=== PATIENT | female | born 1950 | race Caucasian/White ===

== ENCOUNTER → 2017-06-05 | Outpatient (CLI) | payer MEDICARE, MEDICAID ==
--- NOTE | 2017-06-05 14:45 | RADIOLOGY REPORT (SQ) ---
EXAM DESCRIPTION: U/S RETROPERITON (RENAL/AORTA) COMPLETED DATE/TIME: 06/05/2017 1:17 pm REASON FOR STUDY: N18.3 CHRONIC KIDNEY DISEASE, STAGE 3 (MODERATE) N18.3 CHRONIC KIDNEY DISEASE, ST AGE 4 (MODERATE) COMPARISON: None. TECHNIQUE: Dynamic and static grayscale images acquired of the kidneys and bladder and recorded on P ACS. Additional selected color Doppler and spectral images recorded. LIMITATIONS: None. FINDINGS: RIGHT KIDNEY: Small, 8.8 cm. Cortical thickness fairly well maintained. Normal echogenic ity. No solid or suspicious masses. No hydronephrosis. No calcifications. LEFT KIDNEY: Normal size, 9.7 cm. Cortical thickness well-maintained. Normal echogenicity. No solid or suspicious masses. No hydronephrosis. No calcifications. BLADDER: Morphologically normal. Left urinary jet is visualized. OTHER FINDINGS: No other significant finding. IMPRESSION: The right kidney is smaller than the left but both kidneys show fairly good cortical thi ckness. Urinary bladder is normal. TECHNICAL DOCUMENTATION: JOB ID: [id number] [employer]- All Rights Reserved
== END ==
LOC: RAD 12:36
PROVIDERS: ATTEND Internal Medicine Nephrology
DX: N18.3 Chronic kidney disease, stage 3 (moderate) (principal)
CPT/HCPCS: 76770

== ENCOUNTER → 2017-06-17 | Outpatient (CLI) | payer MEDICARE, MEDICAID ==
[2017-06-17 11:01] LABS: APPEARANCE,URINE SLIGHTLY-CLOUDY; BILIRUBIN,URINE NEGATIVE (NEGATIVE); GLUCOSE, URINE NEGATIVE (NEGATIVE); KETONES,URINE NEGATIVE (NEGATIVE); LEUKOCYTE ESTERASE,URINE TRACE (NEGATIVE); NITRITE,URINE POSITIVE (NEGATIVE); PROTEIN,URINE NEGATIVE (NEGATIVE); URINE SPECIFIC GRAVITY 1.006; UROBILINOGEN,URINE NEGATIVE mg/dL (<2.0)
[2017-06-17 11:02] LABS: HEMATOCRIT 43.3 % (36.0-47.0); HEMOGLOBIN 14.9 g/dL (12.0-15.5); HGB HCT DIFFERENCE 1.4; MEAN CORPUSCULAR HEMOGLOBIN 31.9 pg (27.0-33.4); MEAN CORPUSCULAR HGB CONC 34.3 g/dL (32.0-36.0); MEAN CORPUSCULAR VOLUME 93 fl (80-97); RED BLOOD COUNT 4.65 10^6/uL (3.72-5.28); RED CELL DISTRIBUTION WIDTH 13.5 % (11.5-14.0); WHITE BLOOD COUNT 9.3 10^3/uL (4.0-10.5)
[2017-06-17 11:19] LABS: ANION GAP 14 (5-19); BLOOD UREA NITROGEN 12 mg/dL (7-20); CALCIUM 10.1 mg/dL (8.4-10.2); CARBON DIOXIDE 26 mmol/L (22-30); CHLORIDE 102 mmol/L (98-107); CREATININE RESULT 1.02 mg/dL (0.52-1.25); GLUCOSE 147 mg/dL (75-110); POTASSIUM 4.7 mmol/L (3.6-5.0); SODIUM 141.6 mmol/L (137-145)
== END ==
LOC: OD 09:06
PROVIDERS: ATTEND Internal Medicine Nephrology
DX: N18.3 Chronic kidney disease, stage 3 (moderate) (principal)
CPT/HCPCS: 36415; 80048; 81001; 85027

== ENCOUNTER → 2017-10-02 | Outpatient (CLI) | payer MEDICARE, MEDICAID ==
[2017-10-02 14:50] LABS: HEMATOCRIT 43.3 % (36.0-47.0); HEMOGLOBIN 14.7 g/dL (12.0-15.5); MEAN CORPUSCULAR HEMOGLOBIN 31.3 pg (27.0-33.4); MEAN CORPUSCULAR VOLUME 92 fl (80-97); PLATELET COUNT 321 10^3/uL (150-450); RED BLOOD COUNT 4.69 10^6/uL (3.72-5.28); RED CELL DISTRIBUTION WIDTH 14.8 % (11.5-14.0); WHITE BLOOD COUNT 8.6 10^3/uL (4.0-10.5)
[2017-10-02 15:10] LABS: ANION GAP 8 (5-19); BLOOD UREA NITROGEN 15 mg/dL (7-20); CALCIUM 10.5 mg/dL (8.4-10.2); CARBON DIOXIDE 32 mmol/L (22-30); CHLORIDE 97 mmol/L (98-107); GLUCOSE 111 mg/dL (75-110); POTASSIUM 5.4 mmol/L (3.6-5.0)
[2017-10-02 15:17] LABS: APPEARANCE,URINE CLEAR; BILIRUBIN,URINE NEGATIVE (NEGATIVE); COLOR,URINE YELLOW; GLUCOSE, URINE NEGATIVE (NEGATIVE); KETONES,URINE NEGATIVE (NEGATIVE); LEUKOCYTE ESTERASE,URINE SMALL (NEGATIVE); NITRITE,URINE NEGATIVE (NEGATIVE); PROTEIN,URINE NEGATIVE (NEGATIVE); URINE SPECIFIC GRAVITY 1.002; UROBILINOGEN,URINE NEGATIVE mg/dL (<2.0)
== END ==
LOC: OD 13:50
PROVIDERS: ATTEND Internal Medicine Nephrology
DX: N18.3 Chronic kidney disease, stage 3 (moderate) (principal)
CPT/HCPCS: 36415; 80048; 81001; 85027

== ENCOUNTER → 2017-12-03 | Outpatient (CLI) | payer MEDICARE, MEDICAID ==
--- NOTE | 2017-12-08 07:49 | RADIOLOGY REPORT (SQ) ---
EXAM DESCRIPTION: MRI BREAST BILAT W AND/OR WO COMPLETED DATE/TIME: 12/03/2017 8:50 am REASON FOR STUDY: MALIGNANT NEOPLASM OF UPPER-INNER QUAD OF RIGHT BREAST (C50.211) C50.211 MALIG NE OPLM OF UPPER-INNER QUADRANT OF RIGHT FEMALE COMPARISON: Outside mammograms 05/08/2009, 10/23/2015, 10/14/2017 Right breast ultrasound 10/14/2017 PATHOLOGIC CORRELATION: Biopsy-proven malignancy, medial right breast. Atypical hyperplasia, right breast retroareolar region. CONTRAST TYPE AND DOSE: 20 mL Prohance. RENAL FUNCTION: GFR > 60. TECHNIQUE: MR imaging performed with a dedicated breast coil. Pre contrast T1 and T2 weighted images . Pre contrast and post contrast enhanced T1 weighted images with fat saturation. Subtraction images, 3D thick and thin MIPS, and kinetic analysis performed on an independent workstat ion. ([employer] workstation) Magnet strength: 1.5 T LIMITATIONS: None. FINDINGS: BREAST DENSITY: b. There are scattered areas of fibroglandular density. BACKGROUND PARENCHYMAL ENHANCEMENT:Minimal. RIGHT BREAST: There is a biopsy clip in the medial right breast about 2.5 cm from the sternum. This biopsy clip causes artifact, obscuring the nodule which was biopsied and shown to represent focal jeanna anton hyperplasia. Nodule measures about 1 cm in size. The border between the nodule and pectoralis muscle is obscured by the metallic artifact from the clip. A second biopsy clip is present in the right retroareolar region, adjacent to a 10 mm retroareolar no dule with avid gadolinium enhancement and nipple retraction worrisome for malignancy. This correlate s with right breast 2 o'clock core needle biopsy invasive ductal carcinoma on path report 11/17/2017. Laterally in the right breast, about the level of the nipple, 6 cm from the nipple a 12 mm nodule is present with avid gadolinium enhancement. This has spiculated margins and is highly suspicious for m alignancy. Second-look ultrasound with ultrasound-guided core biopsy of this lesion in the lateral r ight breast is recommended. No clumped, regional/segmental ductal enhancement. CHEST WALL: Normal tissue planes. No abnormal internal mammary nodes. AXILLA: Normal axillary and retro-pectoral nodes. LEFT BREAST:No enhancing or suspicious masses. No clumped, regional/segmental ductal enhancement. CHEST WALL: Normal tissue planes. No abnormal internal mammary nodes. AXILLA: Normal axillary and retro-pectoral nodes. OTHER:No identified liver, bone, or lung lesions. No other significant incidental findings. IMPRESSION: Right breast: Laterally in the right breast 6 cm from the nipple, a 12 mm nodule is present with avid gadolinium en hancement and spiculated margins highly suspicious for malignancy. This lesion has not been biopsied . Second-look ultrasound with ultrasound-guided biopsy of this lesion is recommended. BI-RADS 0, ad ditional right breast ultrasound with ultrasound-guided core biopsy is recommended of this lesion. In the right retroareolar region, a malignant appearing nodule is present, biopsy proven to represent invasive ductal carcinoma on path report 11/17/2017. Known malignancy, appropriate action should be taken. No MR evidence of malignancy left breast. BIRAD: RIGHT BREAST: BI-RADS 0, additional right breast ultrasound with ultrasound-guided core biops y is recommended, in the right breast lateral nodule LEFT BREAST: 1 Negative. RECOMMENDATION: RECOMMENDED FOLLOW-UP: Right breast second-look ultrasound laterally, with ultrasoun d-guided core biopsy TECHNICAL DOCUMENTATION: JOB ID: [id number] [employer]- All Rights Reserved Reading location - IP/workstation name: [facility]
== END ==
LOC: RAD 07:25
PROVIDERS: ATTEND Internal Medicine
DX: C50.211 Malignant neoplasm of upper-inner quadrant of right female breast (principal)
CPT/HCPCS: A9576; C8906; 77059

== ENCOUNTER → 2017-12-09 | Outpatient (CLI) | payer MEDICARE, MEDICAID ==
[~2017-12-09] MED LIST: LIDOCAINE 2% INJ (20 MG/ML) 20 ML MDV ONE
--- NOTE | 2017-12-09 17:01 | RADIOLOGY REPORT (SQ) ---
EXAM DESCRIPTION: NM MUGA REST COMPLETED DATE/TIME: 12/09/2017 11:47 am REASON FOR STUDY: BREAST CANCER, CHEMO PLANNED Z08 ENCNTR FOR FOLLOW-UP EXAM AFTER TRTMT FOR MALIGN ANT NEOP C50.211 MALIG NEOPLM OF UPPER-INNER QUADRANT OF RIGHT FEMALE COMPARISON: None. RADIONUCLIDE AND DOSE: 24.8 mCi technetium 99m labeled red blood cells The route of agent administration: Intravenous TECHNIQUE: Following administration of the radionuclide, gated images of the heart are obtained in t hree projections. Left ventricular functional analysis performed. LIMITATIONS: None. FINDINGS: LEFT VENTRICULAR FUNCTION: EJECTION FRACTION: 89%. END-DIASTOLIC VOLUME: 58 mL. END-SYSTOLIC VOLUME: 10 mL. WALL MOTION: No regional wall motion abnormalities. OTHER: No other significant finding. IMPRESSION: NORMAL CARDIAC MUGA STUDY. NORMAL LEFT VENTRICULAR FUNCTION WITH VALUES ABOVE. TECHNICAL DOCUMENTATION: JOB ID: [id number] [employer]- All Rights Reserved Reading location - IP/workstation name: [email or web address]
== END ==
LOC: RAD 10:00
PROVIDERS: ATTEND Internal Medicine
DX: Z08 Encounter for follow-up examination after completed treatment for malignant neoplasm (principal); C50.211 Malignant neoplasm of upper-inner quadrant of right female breast
CPT/HCPCS: 78472; A9538; Q9969; J3490

== ENCOUNTER → 2017-12-10 | Day surgery (SDC) | payer MEDICARE, MEDICAID ==
--- NOTE | 2017-12-18 07:51 | WOMENS IMAGING REPORT ---
EXAM DESCRIPTION: U/S BREAST BX; U/S BREAST BX EACH ADDT'L; RIGHT DIG DX MAMMO NO CHG COMPLETED DATE/TIME: 12/10/2017 1:47 pm; 12/10/2017 1:23 pm REASON FOR STUDY: RT BREAST NODULE; C50.211; C50.211 S/P US BX RIGHT FOR CLIP PLACEMENT C50.211 MAL IG NEOPLM OF UPPER-INNER QUADRANT OF RIGHT FEMALE COMPARISON: MRI breast 12/03/2017 Mammograms and ultrasound 10/14/2017 TECHNIQUE: The procedure was discussed with the patient and the patient agreed to proceed. The patient was scanned and the area of interest in the 10 o'clock position 10 cm from the nipple of the right breast was localized. This correlates with the area of concern on prior imaging studies. T his area was targeted for ultrasound-guided core biopsy. After sterile skin prep and 3 mL local lidocaine 1% for skin and deep tissue anesthesia, a 14 gauge c oaxial core biopsy needle was used to obtain several cores of tissue from the lesion. Under ultrasou nd guidance, a ribbon clip was placed in the areas sampled. There were no immediate post-procedure c omplications. MAMMOGRAM: Post-procedure two view mammogram was acquired in the digital mammogram suite. The clip wa s in the expected location. No significant hematoma. Pathology yields a diagnosis of invasive ductal carcinoma Pathology is concordant. LIMITATIONS: None. FINDINGS: Ultrasound guided breast biopsy as described above. POST PROCEDURE MAMMOGRAMS FOR MARKER PLACEMENT: Yes IMPRESSION: ULTRASOUND-GUIDED CORE BIOPSY OF THE RIGHT BREAST MASS 10 O'CLOCK POSITION YIELDS A DIAG NOSIS OF INVASIVE DUCTAL CARCINOMA COMMENT: BI-RADS 6 Known biopsy-proven malignancy. Appropriate action should be taken. COMMUNICATION: This case was discussed with Dr. Crawley and Dr. Osorio Patient medication list reviewed: Yes- Quality ID# [id number]:Eligible professional attests to documenting i n the medical record they obtained, updated, or reviewed the patient's current medications. TECHNICAL DOCUMENTATION: JOB ID: [id number] [employer]- All Rights Reserved Reading location - IP/workstation name: [email or web address]
== END ==
LOC: WI 10:27
PROVIDERS: ATTEND Internal Medicine
DX: C50.211 Malignant neoplasm of upper-inner quadrant of right female breast (principal)
CPT/HCPCS: 19083; 19084; 88305; 88313; 88341; 88342

== ENCOUNTER 2017-12-16 05:33 | Day surgery (SDC) | payer MEDICARE, MEDICAID ==
[2017-12-15 10:06] LABS: HEMATOCRIT 43.1 % (36.0-47.0); HEMOGLOBIN 14.9 g/dL (12.0-15.5); MEAN CORPUSCULAR HEMOGLOBIN 31.5 pg (27.0-33.4); MEAN CORPUSCULAR HGB CONC 34.5 g/dL (32.0-36.0); MEAN CORPUSCULAR VOLUME 91 fl (80-97); PLATELET COUNT 379 10^3/uL (150-450); RED BLOOD COUNT 4.72 10^6/uL (3.72-5.28); RED CELL DISTRIBUTION WIDTH 14.4 % (11.5-14.0); WHITE BLOOD COUNT 9.1 10^3/uL (4.0-10.5)
--- NOTE | 2017-12-15 12:02 | RADIOLOGY REPORT (SQ) ---
EXAM DESCRIPTION: CHEST SINGLE VIEW COMPLETED DATE/TIME: 12/15/2017 10:43 am REASON FOR STUDY: PRE-OP COMPARISON: Chest films 08/17/2010 EXAM PARAMETERS: NUMBER OF VIEWS: One view. TECHNIQUE: Single frontal radiographic view of the chest acquired. RADIATION DOSE: NA LIMITATIONS: None. FINDINGS: LUNGS AND PLEURA: No acute infiltrates. No pleural effusion or pneumothorax. Upper lobes are hyperlucent from obstructive disease. MEDIASTINUM AND HILAR STRUCTURES: No masses. Contour normal. HEART AND VASCULAR STRUCTURES: Heart normal in size. Normal vasculature. BONES: No acute findings. HARDWARE: None in the chest. OTHER: No other significant finding. IMPRESSION: Obstructive lung disease. No acute findings TECHNICAL DOCUMENTATION: JOB ID: [id number] [employer]- All Rights Reserved Reading location - IP/workstation name: [email or web address]
--- NOTE | 2017-12-15 22:42 | EKG REPORT ---
SEVERITY:- NORMAL ECG - SINUS RHYTHM : Confirmed by: Citlaly Panchal 15-Dec-2017 22:41:04
[~2017-12-16 05:33] MED LIST changes: +ACETAMINOPHEN 325 MG TABLET PO PRN; +CEFAZOLIN 1 GM/D5W RTU 1 GM/50 ML RTUPB IV PRN; +LACTATED RINGERS 1000 ML IV PRN; -LIDOCAINE 2% INJ (20 MG/ML) 20 ML MDV ONE
[2017-12-16] MEDS ORDERED: LIDOCAINE 1%/EPINEPHRINE INJ 20 ML VIAL ONE (06:35)
[2017-12-16] MEDS ORDERED: MIDAZOLAM 2 MG/2 ML INJ ONE (06:42)
[2017-12-16] MEDS ORDERED: FENTANYL CITRATE INJ/PF 100 MCG/2 ML AMPUL ONE (06:42)
[2017-12-16] MEDS ORDERED: PROPOFOL INJ 200 MG/20 ML VIAL IV ONE (06:42)
[2017-12-16] MEDS ORDERED: PROMETHAZINE HCL INJ 25 MG/1 ML VIAL IV PRN ×2 (07:43)
[2017-12-16] MEDS ORDERED: DIPHENHYDRAMINE HCL 50 MG/ML VIAL IV PRN (07:43)
[2017-12-16] MEDS ORDERED: FENTANYL CITRATE INJ/PF 100 MCG/2 ML AMPUL IV PRN ×3 (07:43)
[2017-12-16] MEDS ORDERED: MEPERIDINE HCL/PF INJ 25 MG/1 ML DISP.SYRIN IV PRN (07:43)
--- NOTE | 2017-12-16 08:25 | Discharge Summary ---
Discharge Summary (SDC) - Discharge Final Diagnosis: Right breast cancer Date of Surgery: 12/16/17 Discharge Date: 12/16/17 Condition: Stable Treatment or Instructions: WOUND CARE: Do not get area wet for 48 hours. In 48 hours, you may shower, leave steri strips intact. Warm water/soap may wash over area, pat dry, cover if needed. PAIN MANAGEMENT: You may take Toradol 10 mg, one pill by mouth every six hours as needed for pain. FOLLOW UP: Follow up at [facility] in 7-10 days. Call clinic sooner with questions/concerns or if area becomes red, swollen, drainage, or difficulty breathing. Prescriptions: Ketorolac Tromethamine [Toradol 10 mg Tablet] 10 mg PO Q6HP PRN #20 tablet PRN Reason: Referrals: JW DEWITT MD [Primary Care Provider] - Discharge Diet: As Tolerated Discharge Activity: Activity As Tolerated, Walk Frequently Report the Following to Your Physician Immediately: Shortness of Breath, Fever over 101 Degrees, Unusual Bleeding, Redness, Swelling, Warmth, Drainage-Foul Smelling
[2017-12-16] MEDS ORDERED: OXYCODONE-ACETAMINOPHEN 5-325 MG TABLET PO PRN (08:30)
--- NOTE | 2017-12-16 08:38 | Operative Report ---
Operative Report DATE OF SURGERY: 12/16/17 PREOPERATIVE DIAGNOSIS: Multicentric right breast carcinoma POSTOPERATIVE DIAGNOSIS: Same OPERATION: 1. Focused ultrasound of the left neck. 2. Ultrasound directed insertion of single-lumen Qkdsds-f-Ndzf catheter into subclavian position. 3. Intraoperative fluoroscopic interpretation SURGEON: CITLALI KINNEY 1ST ROUTE MANAGER: DEVON VAUGHN ANESTHESIA: LMAC TISSUE REMOVED OR ALTERED: None COMPLICATIONS: None ESTIMATED BLOOD LOSS: Scant INTRAOPERATIVE FINDINGS: See below PROCEDURE: The patient was taken to the operating room where LMAC anesthesia was induced. Right head and neck were rotated to the right side. Left neck and chest wall were prepped and draped sterile fashion. Surgical plan surgical timeout conducted. Using ultrasonography real-time as a guide, the left neck was anesthetized 1% plain lidocaine. Micro needle and wire were threaded into the left internal jugular vein using the variable frequency transducer. A suitable place for placement of the port pocket was chosen. Skin was anesthetized 1% plain lidocaine. A 3 cm incision was made in the subclavicular position, subcutaneous pocket developed large enough to accommodate a single- chamber port. The catheter that was then trimmed the appropriate length tunneled between the 2 incisions with the metallic tunneler and attached to the port with the plastic retaining ring. The port was tucked into the pocket. The micro wire was switched over to a conventional 0.030 wire using the micro introducer sheath. We now threaded a 9 Grenadian dilator and sheath over the conventional guidewire all under fluoroscopic guidance. The dilator wire removed, and the single lumen catheter threaded into the left internal jugular vein. Strip away sheath was removed leaving the catheter position. There was no kinking of the catheter. The tip of the catheter was in the innominate vein- superior vena cava junction. There was excellent aspiration and flush through the single port using a Rueda needle. There was no ectopy. Wounds closed with 3-0 Vicryl benzoin Steri- Strips. Patient tolerated procedure well, taken recovery in stable condition.
[2017-12-16 11:33] VITALS: BP 128/75
--- NOTE | 2017-12-16 17:02 | RADIOLOGY REPORT (SQ) ---
EXAM DESCRIPTION: FLUORO/CV PLACEMENT COMPLETED DATE/TIME: 12/16/2017 10:07 am REASON FOR STUDY: PORTACATH PLCMT LEFT SIDE ASST WITH FLUORO IN OR C50.911 MALIGNANT NEOPLASM OF UN SP SITE OF RIGHT FEMALE FLACO Z79.01 CORRECTION (CURRENT) USE OF ANTICOAGULANTS COMPARISON: AP chest 12/15/2017 FLUOROSCOPY TIME: 0.3 minutes 3 digital radiographic images saved to PACS. TECHNIQUE: Intra-operative images acquired during surgical procedure to evaluate progress. NUMBER OF IMAGES: 3 digital radiographic images LIMITATIONS: None. FINDINGS: Intra procedural imaging and fluoro during placement of a left-sided permanent central hannah e. The tip is in the left brachiocephalic vein/upper superior vena cava. Please see the operative r eport for further details IMPRESSION: Intra procedural imaging and fluoro COMMENT: Quality ID [id number]: Final reports for procedures using fluoroscopy that document radiation exp osure indices, or exposure time and number of fluorographic images (if radiation exposure indices are not available) Please consult full operative report of the attending physician for description of the procedure. TECHNICAL DOCUMENTATION: JOB ID: [id number] [employer]- All Rights Reserved Reading location - IP/workstation name: [email or web address]
== END 2017-12-16 10:00 | disposition home or self-care (01) ==
LOC: OROUT 05:33
PROVIDERS: ATTEND Surgery
DX: C50.911 Malignant neoplasm of unspecified site of right female breast (principal); N28.9 Disorder of kidney and ureter, unspecified; G47.00 Insomnia, unspecified; F17.200 Nicotine dependence, unspecified, uncomplicated; N63.10 Unspecified lump in the right breast, unspecified quadrant; F32.9 Major depressive disorder, single episode, unspecified; F17.210 Nicotine dependence, cigarettes, uncomplicated; Z79.899 Other long term (current) drug therapy; Z01.818 Encounter for other preprocedural examination
CPT/HCPCS: 36561; 93005; 36415; 85027; 71045; 77001; 93010; C1752; C1788; J2250; J0690; J3010; J3490; J2704; J1642; 532

== ENCOUNTER 2017-12-25 07:53 | Outpatient (CLI) | payer MEDICARE, MEDICAID ==
[~2017-12-25 07:53] MED LIST changes: -ACETAMINOPHEN 325 MG TABLET PO PRN; +CARBOPLATIN IV PRN; -CEFAZOLIN 1 GM/D5W RTU 1 GM/50 ML RTUPB IV PRN; +DEXAMETHASONE SOD PHOSPHATE 20 MG in NORMAL SALINE 50 ML IV PRN; +DIPHENHYDRAMINE HCL 50 MG in NORMAL SALINE 50 ML INJ PRN; +DOCETAXEL IV PRN; +FAMOTIDINE/PF 20 MG in NORMAL SALINE 50 ML IV PRN; +FOSAPREPITANT DIMEGLUMINE 150 MG in NORMAL SALINE 150 ML IV PRN; -LACTATED RINGERS 1000 ML IV PRN; +NORMAL SALINE 250 ML IV PRN; +NORMAL SALINE IV PRN; +PALONOSETRON 0.25 MG/5 ML SDV IV PRN; +PERTUZUMAB 840 MG in NORMAL SALINE 250 ML IV PRN; +TRASTUZUMAB IV PRN
[2017-12-25 08:31] VITALS: BP 134/60
== END 2017-12-25 15:23 | disposition home or self-care (01) ==
LOC: II 07:53 → 5TH 08:10 → II 15:23
PROVIDERS: ATTEND Internal Medicine
PROC: 3E04305 Introduction of Other Antineoplastic into Central Vein, Percutaneous Approach (ICD-10-PCS; principal; 2017-12-25)
PROC: 3E0430M Introduction of Antineoplastic, Monoclonal Antibody, into Central Vein, Percutaneous Approach (ICD-10-PCS; 2017-12-25)
PROC: 3E0433Z Introduction of Anti-inflammatory into Central Vein, Percutaneous Approach (ICD-10-PCS; 2017-12-25)
PROC: 3E043GC Introduction of Other Therapeutic Substance into Central Vein, Percutaneous Approach (ICD-10-PCS; 2017-12-25)
DX: Z51.11 Encounter for antineoplastic chemotherapy (principal); C50.211 Malignant neoplasm of upper-inner quadrant of right female breast
CPT/HCPCS: 96413; 96415; 96367; 96374; 96375; 96360; 96417; J1200; J9045; J7050; S0028; J1100; J1453; J9306; J2469; J9355; J9171

== ENCOUNTER 2018-01-15 10:16 | Outpatient (CLI) | payer MEDICARE, MEDICAID ==
[~2018-01-15 10:16] MED LIST changes: -DIPHENHYDRAMINE HCL 50 MG in NORMAL SALINE 50 ML INJ PRN; +DIPHENHYDRAMINE HCL 50 MG in NORMAL SALINE 50 ML IV PRN; -NORMAL SALINE 250 ML IV PRN; -PERTUZUMAB 840 MG in NORMAL SALINE 250 ML IV PRN; +PERTUZUMAB IV PRN
[2018-01-15] MEDS ORDERED: ACETAMINOPHEN 325 MG TABLET PO PRN (11:05)
[2018-01-15] MEDS: NORMAL SALINE 250 ML IV PRN ×2 (11:09→11:44)
[2018-01-15 11:34] VITALS: BP 130/64
== END 2018-01-15 15:39 | disposition home or self-care (01) ==
LOC: II 10:16 → 5TH 10:21 → II 15:39
PROVIDERS: ATTEND Internal Medicine
PROC: 3E0430M Introduction of Antineoplastic, Monoclonal Antibody, into Central Vein, Percutaneous Approach (ICD-10-PCS; principal; 2018-01-15)
PROC: 3E04305 Introduction of Other Antineoplastic into Central Vein, Percutaneous Approach (ICD-10-PCS; 2018-01-15)
PROC: 3E0433Z Introduction of Anti-inflammatory into Central Vein, Percutaneous Approach (ICD-10-PCS; 2018-01-15)
PROC: 3E043GC Introduction of Other Therapeutic Substance into Central Vein, Percutaneous Approach (ICD-10-PCS; 2018-01-15)
DX: Z51.11 Encounter for antineoplastic chemotherapy (principal); C50.211 Malignant neoplasm of upper-inner quadrant of right female breast
CPT/HCPCS: 96413; 96367; 96375; 96417; J1200; J9045; J7050; S0028; J1100; J1453; J9306; J2469; J9355; J9171; 96360; 96374; 96415

== ENCOUNTER 2018-02-05 10:25 | Outpatient (CLI) | payer MEDICARE, MEDICAID ==
[~2018-02-05 10:25] MED LIST changes: +NORMAL SALINE 250 ML IV PRN; +PERTUZUMAB 420 MG in NORMAL SALINE 250 ML IV PRN; -PERTUZUMAB IV PRN
[2018-02-05 10:48] VITALS: BP 124/58
== END 2018-02-05 16:48 | disposition home or self-care (01) ==
LOC: II 10:25 → 5TH 10:31 → II 16:48
PROVIDERS: ATTEND Internal Medicine
PROC: 3E0430M Introduction of Antineoplastic, Monoclonal Antibody, into Central Vein, Percutaneous Approach (ICD-10-PCS; principal; 2018-02-05)
PROC: 3E04305 Introduction of Other Antineoplastic into Central Vein, Percutaneous Approach (ICD-10-PCS; 2018-02-05)
PROC: 3E0433Z Introduction of Anti-inflammatory into Central Vein, Percutaneous Approach (ICD-10-PCS; 2018-02-05)
PROC: 3E043GC Introduction of Other Therapeutic Substance into Central Vein, Percutaneous Approach (ICD-10-PCS; 2018-02-05)
DX: Z51.11 Encounter for antineoplastic chemotherapy (principal); C50.211 Malignant neoplasm of upper-inner quadrant of right female breast
CPT/HCPCS: 96413; 96367; 96375; 96417; J1200; J9045; J7050; S0028; J1100; J1453; J9306; J2469; J9355; J9171; 96415

== ENCOUNTER 2018-02-26 08:30 | Outpatient (CLI) | payer MEDICARE, MEDICAID ==
[~2018-02-26 08:30] MED LIST changes: +DIPHENHYDRAMINE HCL 50 MG in NORMAL SALINE 50 ML INJ PRN; -DIPHENHYDRAMINE HCL 50 MG in NORMAL SALINE 50 ML IV PRN
[2018-02-26 08:51] VITALS: BP 115/59
== END 2018-02-26 14:46 | disposition home or self-care (01) ==
LOC: II 08:30 → 5TH 08:35 → II 14:46
PROVIDERS: ATTEND Internal Medicine
DX: Z51.11 Encounter for antineoplastic chemotherapy (principal); C50.211 Malignant neoplasm of upper-inner quadrant of right female breast
CPT/HCPCS: 96413; 96415; 96367; 96375; J1200; J9045; J7050; S0028; J1100; J1453; J9306; J2469; J9355; J9171

== ENCOUNTER 2018-03-26 08:03 | Outpatient (CLI) | payer MEDICARE, MEDICAID ==
[~2018-03-26 08:03] MED LIST changes: -DIPHENHYDRAMINE HCL 50 MG in NORMAL SALINE 50 ML INJ PRN; +DIPHENHYDRAMINE HCL 50 MG in NORMAL SALINE 50 ML IV PRN
[2018-03-26 08:38] VITALS: BP 125/64
[2018-03-26 09:59] LABS: ABSOLUTE BASOPHILS # (AUTO) 0.1 10^3/uL (0.0-0.2); ABSOLUTE EOSINOPHILS # (AUTO) 0.1 10^3/uL (0.0-0.6); ABSOLUTE LYMPHOCYTES (AUTO) 1.9 10^3/uL (0.5-4.7); ABSOLUTE MONOCYTES (AUTO) 0.6 10^3/uL (0.1-1.4); ABSOLUTE NEUT (AUTO) 4.4 10^3/uL (1.7-8.2); BASOPHILS % (AUTO) 0.9 % (0-2); EOSINOPHILS % (AUTO) 1.3 % (0-6); HEMATOCRIT 35.3 % (36.0-47.0); HEMOGLOBIN 11.8 g/dL (12.0-15.5); LYMPHOCYTES % (AUTO) 27.6 % (13-45); MEAN CORPUSCULAR HEMOGLOBIN 30.7 pg (27.0-33.4); MEAN CORPUSCULAR HGB CONC 33.4 g/dL (32.0-36.0); MEAN CORPUSCULAR VOLUME 92 fl (80-97); MONOCYTES % (AUTO) 8.2 % (3-13); PLATELET COUNT 398 10^3/uL (150-450); RED BLOOD COUNT 3.85 10^6/uL (3.72-5.28); RED CELL DISTRIBUTION WIDTH 17.7 % (11.5-14.0); TOTAL CELLS COUNTED % (AUTO) 100 %
== END 2018-03-26 14:33 | disposition home or self-care (01) ==
LOC: II 08:03 → 5TH 08:05 → II 14:33
PROVIDERS: ATTEND Internal Medicine
PROC: 3E0430M Introduction of Antineoplastic, Monoclonal Antibody, into Central Vein, Percutaneous Approach (ICD-10-PCS; principal; 2018-03-26)
PROC: 3E04305 Introduction of Other Antineoplastic into Central Vein, Percutaneous Approach (ICD-10-PCS; 2018-03-26)
PROC: 3E0433Z Introduction of Anti-inflammatory into Central Vein, Percutaneous Approach (ICD-10-PCS; 2018-03-26)
PROC: 3E043GC Introduction of Other Therapeutic Substance into Central Vein, Percutaneous Approach (ICD-10-PCS; 2018-03-26)
DX: Z51.11 Encounter for antineoplastic chemotherapy (principal); C50.211 Malignant neoplasm of upper-inner quadrant of right female breast
CPT/HCPCS: 36415; 85025; 96413; 96415; 96367; 96375; J1200; J9045; J7050; S0028; J1100; J1453; J9306; J2469; J9355; J9171; 96417

== ENCOUNTER → 2018-04-09 | Outpatient (CLI) | payer MEDICARE, MEDICAID ==
[2018-04-09 11:50] LABS: HEMATOCRIT 31.2 % (36.0-47.0); HEMOGLOBIN 10.7 g/dL (12.0-15.5); MEAN CORPUSCULAR HEMOGLOBIN 31.4 pg (27.0-33.4); MEAN CORPUSCULAR HGB CONC 34.1 g/dL (32.0-36.0); MEAN CORPUSCULAR VOLUME 92 fl (80-97); PLATELET COUNT 341 10^3/uL (150-450); RED CELL DISTRIBUTION WIDTH 18.2 % (11.5-14.0); WHITE BLOOD COUNT 4.1 10^3/uL (4.0-10.5)
[2018-04-09 12:16] LABS: ANION GAP 5 (5-19); BLOOD UREA NITROGEN 9 mg/dL (7-20); CALCIUM 9.1 mg/dL (8.4-10.2); CARBON DIOXIDE 27 mmol/L (22-30); CHLORIDE 109 mmol/L (98-107); GLUCOSE 81 mg/dL (75-110); POTASSIUM 4.4 mmol/L (3.6-5.0); SODIUM 141.3 mmol/L (137-145)
== END ==
LOC: OD 10:32
PROVIDERS: ATTEND Internal Medicine Nephrology
DX: N18.3 Chronic kidney disease, stage 3 (moderate) (principal)
CPT/HCPCS: 36415; 80048; 85027

== ENCOUNTER 2018-04-16 09:32 | Outpatient (CLI) | payer MEDICARE, MEDICAID ==
[2018-04-16] MEDS ORDERED: NORMAL SALINE IV PRN ×2 (09:35→09:50)
[2018-04-16] MEDS ORDERED: DOCETAXEL IV PRN (09:35)
[2018-04-16] MEDS ORDERED: CARBOPLATIN IV PRN (09:50)
[2018-04-16 11:14] VITALS: BP 139/57
== END 2018-04-16 14:50 | disposition home or self-care (01) ==
LOC: II 09:32 → 5TH 09:33 → II 14:50
PROVIDERS: ATTEND Internal Medicine
PROC: 3E0430M Introduction of Antineoplastic, Monoclonal Antibody, into Central Vein, Percutaneous Approach (ICD-10-PCS; principal; 2018-04-16)
PROC: 3E0433Z Introduction of Anti-inflammatory into Central Vein, Percutaneous Approach (ICD-10-PCS; 2018-04-16)
PROC: 3E043GC Introduction of Other Therapeutic Substance into Central Vein, Percutaneous Approach (ICD-10-PCS; 2018-04-16)
DX: Z51.11 Encounter for antineoplastic chemotherapy (principal); C50.211 Malignant neoplasm of upper-inner quadrant of right female breast
CPT/HCPCS: 96413; 96415; 96366; 96367; 96374; 96360; 96417; J1200; J9045; J7050; J7040; S0028; J1100; J1453; J9306; J2469; J9355; J9171; 96375

== ENCOUNTER → 2018-05-04 | Outpatient (CLI) | payer MEDICARE, MEDICAID ==
--- NOTE | 2018-05-04 15:57 | RADIOLOGY REPORT (SQ) ---
EXAM DESCRIPTION: NM MUGA REST COMPLETED DATE/TIME: 05/04/2018 3:34 pm REASON FOR STUDY: POST CHEMO (Z08), BREAST CA (C50.211) Z08 ENCNTR FOR FOLLOW-UP EXAM AFTER TRTMT F OR MALIGNANT NEOP COMPARISON: None. RADIONUCLIDE AND DOSE: 23.2 mCi technetium 99m labeled red blood cells The route of agent administration: Intravenous TECHNIQUE: Following administration of the radionuclide, gated images of the heart are obtained in t hree projections. Left ventricular functional analysis performed. LIMITATIONS: None. FINDINGS: LEFT VENTRICULAR FUNCTION: EJECTION FRACTION: 75%. END-DIASTOLIC VOLUME: 84 mL. END-SYSTOLIC VOLUME: 24 mL. WALL MOTION: No focal wall motion abnormalities. OTHER: No other significant finding. IMPRESSION: NORMAL CARDIAC MUGA STUDY. NORMAL LEFT VENTRICULAR FUNCTION WITH VALUES ABOVE. TECHNICAL DOCUMENTATION: JOB ID: [id number] [employer]- All Rights Reserved Reading location - IP/workstation name: [email or web address]
== END ==
LOC: RAD 10:39
PROVIDERS: ATTEND Internal Medicine
DX: Z08 Encounter for follow-up examination after completed treatment for malignant neoplasm (principal); C50.211 Malignant neoplasm of upper-inner quadrant of right female breast
CPT/HCPCS: 78472; A9560; Q9969

== ENCOUNTER 2018-05-07 10:10 | Outpatient (CLI) | payer MEDICARE, MEDICAID ==
[~2018-05-07 10:10] MED LIST changes: -CARBOPLATIN IV PRN; -DEXAMETHASONE SOD PHOSPHATE 20 MG in NORMAL SALINE 50 ML IV PRN; -DIPHENHYDRAMINE HCL 50 MG in NORMAL SALINE 50 ML IV PRN; -DOCETAXEL IV PRN; -FAMOTIDINE/PF 20 MG in NORMAL SALINE 50 ML IV PRN; -FOSAPREPITANT DIMEGLUMINE 150 MG in NORMAL SALINE 150 ML IV PRN; -PALONOSETRON 0.25 MG/5 ML SDV IV PRN; -PERTUZUMAB 420 MG in NORMAL SALINE 250 ML IV PRN
[2018-05-07 10:37] VITALS: BP 140/64
== END 2018-05-07 12:02 | disposition home or self-care (01) ==
LOC: II 10:10 → 5TH 10:15 → II 12:02
PROVIDERS: ATTEND Internal Medicine
PROC: 3E0430M Introduction of Antineoplastic, Monoclonal Antibody, into Central Vein, Percutaneous Approach (ICD-10-PCS; principal; 2018-05-07)
DX: Z51.11 Encounter for antineoplastic chemotherapy (principal); C50.211 Malignant neoplasm of upper-inner quadrant of right female breast
CPT/HCPCS: 96413; 96374; J7050; J9355

== ENCOUNTER 2018-05-26 08:19 | Observation (INO) | payer MEDICARE, MEDICAID ==
[2018-05-17 10:42] LABS: HEMATOCRIT 38.3 % (36.0-47.0); HEMOGLOBIN 13.2 g/dL (12.0-15.5); MEAN CORPUSCULAR HEMOGLOBIN 31.3 pg (27.0-33.4); MEAN CORPUSCULAR HGB CONC 34.5 g/dL (32.0-36.0); MEAN CORPUSCULAR VOLUME 91 fl (80-97); PLATELET COUNT 352 10^3/uL (150-450); RED BLOOD COUNT 4.22 10^6/uL (3.72-5.28); RED CELL DISTRIBUTION WIDTH 18.4 % (11.5-14.0); WHITE BLOOD COUNT 5.1 10^3/uL (4.0-10.5)
[2018-05-17 11:09] LABS: ANION GAP 12 (5-19); BLOOD UREA NITROGEN 19 mg/dL (7-20); CALCIUM 10.2 mg/dL (8.4-10.2); CARBON DIOXIDE 30 mmol/L (22-30); CHLORIDE 104 mmol/L (98-107); GLUCOSE 65 mg/dL (75-110); POTASSIUM 5.2 mmol/L (3.6-5.0); SODIUM 145.6 mmol/L (137-145)
[~2018-05-26 08:19] MED LIST changes: +CEFAZOLIN 1 GM/D5W RTU 1 GM/50 ML RTUPB IV PRN; +LACTATED RINGERS 1000 ML IV PRN; +LIDOCAINE 0.5% INJ-PF (5 MG/ML) 50 ML SDV SUBCUT PRN; +LIDOCAINE 4% TRANSPARENT DRESSING 5 GM KIT ONE; -NORMAL SALINE 250 ML IV PRN; -NORMAL SALINE IV PRN; -TRASTUZUMAB IV PRN
[2018-05-26] MEDS ORDERED: CEFAZOLIN 1 GM/D5W RTU 1 GM/50 ML RTUPB IV ONE (08:23)
[2018-05-26] MEDS ORDERED: MIDAZOLAM 2 MG/2 ML INJ ONE (11:13)
[2018-05-26] MEDS ORDERED: FENTANYL CITRATE INJ/PF 100 MCG/2 ML AMPUL ONE (11:13)
[2018-05-26] MEDS ORDERED: HYDROMORPHONE HCL INJ/PF 2 MG/ML AMPULE ONE (11:13)
[2018-05-26] MEDS ORDERED: PROPOFOL INJ 200 MG/20 ML VIAL IV ONE (11:13)
[2018-05-26] MEDS ORDERED: ONDANSETRON HCL INJ/PF 4 MG/2 ML SDV ONE (11:13)
[2018-05-26] MEDS ORDERED: ACETAMINOPHEN 1,000 MG/100 ML RTUPB IV ONE (11:14)
[2018-05-26] MEDS ORDERED: MICROFIBRILLAR COLLAGEN 1 GM PACK ONE (12:34)
[2018-05-26] MEDS ORDERED: METHYLENE BLUE 50 MG/10 ML AMPULE ONE (12:34)
[2018-05-26] MEDS ORDERED: LIDOCAINE 1%/EPINEPHRINE INJ 20 ML VIAL ONE (12:34)
--- NOTE | 2018-05-26 12:36 | RADIOLOGY REPORT (SQ) ---
EXAM DESCRIPTION: NM LYMPHATICS/LYMPH GLANDS COMPLETED DATE/TIME: 05/26/2018 12:11 pm REASON FOR STUDY: BREAST CANCER C50.911 MALIGNANT NEOPLASM OF UNSP SITE OF RIGHT FEMALE FLACO Z79.01 ASSISTED (CURRENT) USE OF ANTICOAGULANTS COMPARISON: Mammograms and ultrasound 12/10/2017 RADIONUCLIDE AND DOSE: 518 microcuries TC-99m [employer]man[employer] - [employer]. The route of agent administration: Subcutaneous in the skin. TECHNIQUE: The skin of the right breast was prepped in sterile fashion. The radiopharmaceutical was administered in equally divided doses in the periareolar breast. LIMITATIONS: None. FINDINGS: Images demonstrate activity at the injection site. There is migration toward the right ax illa IMPRESSION: ADMINISTRATION OF RADIOPHARMACEUTICAL FOR SENTINEL LYMPH NODE EVALUATION. TECHNICAL DOCUMENTATION: JOB ID: [id number] [employer]- All Rights Reserved Reading location - IP/workstation name: [email or web address]
[2018-05-26] MEDS ORDERED: MEPERIDINE HCL/PF INJ 25 MG/1 ML DISP.SYRIN IV PRN (13:23)
[2018-05-26] MEDS ORDERED: PROMETHAZINE HCL INJ 25 MG/1 ML VIAL IV PRN ×2 (13:23)
[2018-05-26] MEDS ORDERED: MORPHINE SULFATE 10 MG/ML INJ IV PRN (13:23)
[2018-05-26] MEDS ORDERED: DIPHENHYDRAMINE HCL 50 MG/ML VIAL IV PRN (13:23)
[2018-05-26] MEDS ORDERED: FENTANYL CITRATE INJ/PF 100 MCG/2 ML AMPUL IV PRN ×3 (13:23)
--- NOTE | 2018-05-26 14:18 | Discharge Summary ---
Discharge Summary (SDC) - Discharge Final Diagnosis: Right invasive breast carcinoma Date of Surgery: 05/26/18 Discharge Date: 05/26/18 Condition: Stable Treatment or Instructions: [facility] [address] [place] [id number] Care Instructions Following Your Mastectomy Activities: Resume normal activities when you feel comfortable. It is best to remain as active as possible to speed your recovery. It is common to experience some fatigue after surgery and you may find that short naps are helpful. Avoid strenuous activity such as weight lifting, tennis, etc at your surgical site for two weeks. Perform gentle arm exercises daily and do not favor your operative arm to due increased risk of mobility issues postoperatively. No driving for 7 days after surgery. Do not drive if you are taking pain medication other than Tylenol or Ibuprofen. No swimming, tub baths or soaking in a hot tub for 4 weeks. There are no dietary restrictions. Do not smoke as this impairs wound healing. Surgical Site care: Remove your dressing 48 hours after surgery. Leave the steri-strips underneath in place. You may shower after removing the dressing to include washing the wound with soap and water using your hands. Do not scrub the incision. Pat the area dry with a towel. You do not need to recover the wound although some patients find that they feel more comfortable using a light dressing for a few days to absorb any minimal drainage which may occur. Many patients also find that keeping a dressing around the drain exit site is helpful to absorb any drainage which may leak around the tubing. If you use a dressing in this manner change it at least every day. Do not use heating pad or apply an ice pack to the operative site. You may apply deodorant if you are careful to avoid getting it on the wound itself. Empty the bulbs attached to the drain every 12 hours and measure the fluid output separately from each drain. Please also strip each drain each time you empty it to prevent clogging. Keep a record of the output and bring this record with you each time you come to the office for postoperative care. A drain is ready to be removed when its output is 30 mL per 24 hours per drain for 2 consecutive days. Please call the office to inform our staff that you need to come in for drain removal. Medications: Take Toradol 10mg one pill by mouth every six hours as needed for pain. Resume all of your normal prescription medications after your surgery unless instructed otherwise. Follow-up: Call our office at to make a follow-up appointment in 10-14 days. Your doctor will call to discuss the pathology report with you as soon as it is available. Concerns: If you had a sentinel lymph node biopsy with your mastectomy, your urine may have a greenish discoloration. This is normal and will resolve as the blue dye slowly leaves your system. If you notice significant leakage around the drains , this is not normal. The drains may be clogged. Please call our office to come in immediately for the drains to be checked. Some bruising may occur and will go away over time. If you have a fever of 101.5 or greater, chills, redness at the incision site, excessive drainage from your wound or severe pain not relieved by pain medication, call your doctor. A physician is available 24 hours a day 7 days a week in addition to regular office hours. If problems arise after normal office hours please call the hospital at . Please call if you have any questions or concerns. Prescriptions: Ketorolac Tromethamine [Toradol 10 mg Tablet] 10 mg PO Q6HP PRN #20 tablet PRN Reason: Referrals: JW DEWITT MD [Primary Care Provider] - Discharge Diet: As Tolerated Discharge Activity: Walk Frequently Report the Following to Your Physician Immediately: Increase in Pain, Fever over 101 Degrees, Unusual Bleeding, Redness, Swelling, Warmth, Drainage-Foul Smelling
[2018-05-26] MEDS ORDERED: ALBUTEROL SULFATE 0.083% NEB 2.5 MG/3 ML AMPUL NEB ONE (14:34)
[2018-05-26] MEDS: LORAZEPAM INJ 2 MG/1 ML VIAL ONE ×2 (14:50→15:10)
[2018-05-26] MEDS ORDERED: DEXAMETHASONE SOD PHOSPHATE INJ 4 MG/1 ML VIAL ONE (14:55)
[2018-05-26] MEDS ORDERED: NEOSTIGMINE METHYLSULFATE 10 MG/10 ML VIAL ONE (14:55)
[2018-05-26] MEDS ORDERED: ROCURONIUM BROMIDE INJ 50 MG/5 ML VIAL IV ONE (14:55)
[2018-05-26] MEDS ORDERED: GLYCOPYRROLATE 1 MG/5 ML SYRINGE ONE (14:55)
[2018-05-26] MEDS ORDERED: SUCCINYLCHOLINE CHLORIDE INJ 200 MG/10 ML VIAL ONE (14:55)
[2018-05-26] MEDS ORDERED: KETOROLAC TROMETHAMINE 60 MG/2 ML SDV ONE (14:55)
[2018-05-26] MEDS ORDERED: FUROSEMIDE INJ/PF 40 MG/4 ML SDV ONE (16:00)
--- NOTE | 2018-05-26 16:06 | RADIOLOGY REPORT (SQ) ---
EXAM DESCRIPTION: CHEST SINGLE VIEW COMPLETED DATE/TIME: 05/26/2018 3:45 pm REASON FOR STUDY: Post op mastectomy COMPARISON: 08/22/2010, 12/15/2017 chest films EXAM PARAMETERS: NUMBER OF VIEWS: One view. TECHNIQUE: Single frontal radiographic view of the chest acquired. RADIATION DOSE: NA LIMITATIONS: None. FINDINGS: LUNGS AND PLEURA: Chronic lines are present in the mid and lower lungs indicating intersti tial pulmonary edema. No fluffy alveolar infiltrates worrisome for perihilar alveolar edema or aspiration pneumonia. No pneumothorax. No pleural effusions. MEDIASTINUM AND HILAR STRUCTURES: No masses. Contour normal. HEART AND VASCULAR STRUCTURES: Heart normal in size. Normal vasculature. BONES: No acute findings. HARDWARE: Left-sided permanent central line tip superior vena cava. Surgical clips right chest wall post mastectomy, with soft tissue drain in place. OTHER: No other significant finding. IMPRESSION: Kim lines at both lung bases from interstitial pulmonary edema Left permanent central line tip superior vena cava. No pneumothorax. Surgical clips right chest post mastectomy with soft tissue drain in place TECHNICAL DOCUMENTATION: JOB ID: [id number] [employer]- All Rights Reserved Reading location - IP/workstation name: [email or web address]
[2018-05-26] MEDS ORDERED: ALBUTEROL SULFATE HFA (90 MCG/PUFF) 200 PUFF/8.5 GM MDI IH ONE (17:57)
[2018-05-26] MEDS ORDERED: ACETAMINOPHEN 325 MG TABLET PO PRN (19:02)
[2018-05-26] MEDS ORDERED: KETOROLAC TROMETHAMINE INJ/PF 30 MG/1 ML SDV IV PRN (19:02)
[2018-05-27] MEDS ORDERED: ONDANSETRON HCL INJ/PF 4 MG/2 ML SDV ONE (00:19)
[2018-05-27] MEDS ORDERED: ONDANSETRON HCL INJ/PF 4 MG/2 ML SDV IV PRN (00:20)
[2018-05-27] MEDS: OXYCODONE-ACETAMINOPHEN 5-325 MG TABLET PO PRN ×3 (01:39→12:03)
--- NOTE | 2018-05-27 08:13 | RADIOLOGY REPORT (SQ) ---
EXAM DESCRIPTION: CHEST SINGLE VIEW COMPLETED DATE/TIME: 05/27/2018 7:52 am REASON FOR STUDY: portable chest, Re: shortness of breath COMPARISON: 05/26/2018. EXAM PARAMETERS: NUMBER OF VIEWS: One view. TECHNIQUE: Single frontal radiographic view of the chest acquired. RADIATION DOSE: NA LIMITATIONS: None. FINDINGS: LUNGS AND PLEURA: Mild interstitial prominence. No focal infiltrates, masses or pneumotho rax. No pleural effusion. MEDIASTINUM AND HILAR STRUCTURES: No masses. Contour normal. HEART AND VASCULAR STRUCTURES: Heart normal in size. Normal vasculature. BONES: No acute findings. HARDWARE: Stable central line. Surgical clips. OTHER: Previous mastectomy. IMPRESSION: NO SIGNIFICANT CHANGE. TECHNICAL DOCUMENTATION: JOB ID: [id number] [employer]- All Rights Reserved Reading location - IP/workstation name: [email or web address]
[2018-05-27 10:05] VITALS: BP 131/64
== END 2018-05-27 12:31 | disposition home or self-care (01) ==
LOC: OROUT 08:19 → INTOOBSV 18:15 → ICU 18:15
PROVIDERS: ADMIT Surgery; ATTEND Surgery
PROC: 07B50ZX Excision of Right Axillary Lymphatic, Open Approach, Diagnostic (ICD-10-PCS; 2018-05-26)
PROC: 0HTT0ZZ Resection of Right Breast, Open Approach (ICD-10-PCS; principal; 2018-05-26 12:30)
DX: C50.811 Malignant neoplasm of overlapping sites of right female breast (principal); F17.200 Nicotine dependence, unspecified, uncomplicated; Z79.01 Long term (current) use of anticoagulants; Z79.899 Other long term (current) drug therapy
CPT/HCPCS: 36415 ×2; 84132; 85027; 80048; 88342 ×2; 88341 ×2; 88307 ×2; 71045 ×2; 78195; 76098; 19307; G0378 ×2; G0379; A9520; J2250; J0690; J3490 ×7; J1100; J1885 ×2; J3010; J1940; A9270 ×2; J1170; J2060; J0330; J2405 ×2; J2704; J0131; Q9968; 1610

== ENCOUNTER → 2018-05-27 | Outpatient (CLI) | payer MEDICARE, MEDICAID ==
--- NOTE | 2018-05-27 13:14 | WOMENS IMAGING REPORT ---
EXAM DESCRIPTION: BREAST SPECIMEN COMPLETED DATE/TIME: 05/27/2018 11:59 am REASON FOR STUDY: POST BIOPSY COMPARISON: None. TECHNIQUE: Specimen radiograph from breast procedure performed in the operating room. LIMITATIONS: None. FINDINGS: Specimen radiograph from breast procedure performed in the operating room. Please see procedure note for details and final pathology. IMPRESSION: Specimen radiograph. TECHNICAL DOCUMENTATION: JOB ID: [id number] Reading location - IP/workstation name: [email or web address]
== END ==
LOC: WI 11:41
PROVIDERS: ATTEND Family Medicine
DX: Z09 Encounter for follow-up examination after completed treatment for conditions other than malignant neoplasm (principal); Z98.890 Other specified postprocedural states
CPT/HCPCS: 76098

== ENCOUNTER → 2018-05-31 | Outpatient (CLI) | payer MEDICARE, MEDICAID ==
--- NOTE | 2018-05-31 12:15 | WOMENS IMAGING REPORT ---
EXAM DESCRIPTION: BREAST SPECIMEN COMPLETED DATE/TIME: 05/31/2018 10:30 am REASON FOR STUDY: SPECIMEN COMPARISON: 05/27/2018 specimen radiograph Multiple prior mammograms TECHNIQUE: Specimen radiograph from breast procedure performed in the operating room. LIMITATIONS: None. FINDINGS: Wax blocks are submitted showing a ribbon shaped clip in TWO of the wax blocks. Findings discussed with Dr Simmons Please see procedure note for details and final pathology. IMPRESSION: Specimen radiograph. TECHNICAL DOCUMENTATION: JOB ID: [id number] Reading location - IP/workstation name: [facility]
== END ==
LOC: WI 09:49
PROVIDERS: ATTEND Family Medicine
DX: N63.11 Unspecified lump in the right breast, upper outer quadrant (principal)
CPT/HCPCS: 76098

== ENCOUNTER 2018-06-04 09:20 | Outpatient (CLI) | payer MEDICARE, MEDICAID ==
[~2018-06-04 09:20] MED LIST changes: -CEFAZOLIN 1 GM/D5W RTU 1 GM/50 ML RTUPB IV PRN; -LACTATED RINGERS 1000 ML IV PRN; -LIDOCAINE 0.5% INJ-PF (5 MG/ML) 50 ML SDV SUBCUT PRN; -LIDOCAINE 4% TRANSPARENT DRESSING 5 GM KIT ONE; +NORMAL SALINE 250 ML IV PRN; +NORMAL SALINE IV PRN; +TRASTUZUMAB IV PRN
[2018-06-04 09:51] VITALS: BP 127/48
== END 2018-06-04 11:48 | disposition home or self-care (01) ==
LOC: II 09:20 → 5TH 09:24 → II 11:48
PROVIDERS: ATTEND Internal Medicine
PROC: 3E0430M Introduction of Antineoplastic, Monoclonal Antibody, into Central Vein, Percutaneous Approach (ICD-10-PCS; principal; 2018-06-04)
DX: Z51.11 Encounter for antineoplastic chemotherapy (principal); C50.211 Malignant neoplasm of upper-inner quadrant of right female breast
CPT/HCPCS: 96413; 96374; J7050; J9355

== ENCOUNTER 2018-06-25 10:26 | Outpatient (CLI) | payer MEDICARE, MEDICAID ==
[~2018-06-25 10:26] MED LIST changes: +PERTUZUMAB 420 MG in NORMAL SALINE 250 ML IV PRN
[2018-06-25 11:35] VITALS: BP 128/62
== END 2018-06-25 12:58 | disposition home or self-care (01) ==
LOC: II 10:26 → 5TH 10:31 → II 12:58
PROVIDERS: ATTEND Internal Medicine
PROC: 3E0430M Introduction of Antineoplastic, Monoclonal Antibody, into Central Vein, Percutaneous Approach (ICD-10-PCS; principal; 2018-06-25)
DX: Z51.11 Encounter for antineoplastic chemotherapy (principal); C50.211 Malignant neoplasm of upper-inner quadrant of right female breast
CPT/HCPCS: 96413; J7050; J9306; J9355; 96417

== ENCOUNTER → 2018-07-08 | Outpatient (CLI) | payer MEDICARE, MEDICAID ==
--- NOTE | 2018-07-08 09:52 | WOMENS IMAGING REPORT ---
EXAM DESCRIPTION: BONE DENSITY HIP/SPINE COMPLETED DATE/TIME: 07/08/2018 8:57 am REASON FOR STUDY: M81.0 M81.0 AGE-RELATED OSTEOPOROSIS W/O CURRENT PATHOLOGICAL FRAC COMPARISON: None. TECHNIQUE: Dual-Energy X-ray Absorptiometry (DEXA) of the AP Spine and Hip. LIMITATIONS: None. FINDINGS: LUMBAR SPINE: The bone mineral density (BMD) measured from L1-L4 in the AP projection correlates with a T-score of 4.1, which is normal as defined by the World Health Organization. HIP: The bone mineral density (BMD) measured in the left hip correlates with a T-score of -1.3, which is o steopenia as defined by the World Health Organization. IMPRESSION: 1. LUMBAR SPINE: NORMAL. 2. HIP: OSTEOPENIA. COMMENT: The World Health Organization defines low BMD as follows: T-score: Normal: Greater than -1.0 Osteopenia: Between -1.0 and -2.5 Osteoporosis: Less than -2.5 without fractures Established osteoporosis: Less than -2.5 with fractures In general, you may wish to consider: Diagnosis Treatment Follow-up DEXA Normal BMD Prevention 2-3 years Osteopenia Prevention/Therapy 1-2 years Osteoporosis Therapy Yearly TECHNICAL DOCUMENTATION: JOB ID: [id number] [employer]- All Rights Reserved Reading location - IP/workstation name: [email or web address]
== END ==
LOC: WI 09:30
PROVIDERS: ATTEND Physician Assistant Medical
DX: M81.0 Age-related osteoporosis without current pathological fracture (principal); Z79.811 Long term (current) use of aromatase inhibitors
CPT/HCPCS: 77080

== ENCOUNTER 2018-07-16 09:56 | Outpatient (CLI) | payer MEDICARE, MEDICAID ==
[2018-07-16 10:23] VITALS: BP 131/54
== END 2018-07-16 13:22 | disposition home or self-care (01) ==
LOC: II 09:56 → 5TH 10:11 → II 13:22
PROVIDERS: ATTEND Internal Medicine
PROC: 3E0430M Introduction of Antineoplastic, Monoclonal Antibody, into Central Vein, Percutaneous Approach (ICD-10-PCS; principal; 2018-07-16)
DX: Z51.11 Encounter for antineoplastic chemotherapy (principal); C50.211 Malignant neoplasm of upper-inner quadrant of right female breast
CPT/HCPCS: 96413; 96415; 96374; 96360; J7050; J9306; J9355; 96361; 96417

== ENCOUNTER 2018-08-06 10:05 | Outpatient (CLI) | payer MEDICARE, MEDICAID ==
[2018-08-06 10:27] VITALS: BP 144/64
== END 2018-08-06 13:08 | disposition home or self-care (01) ==
LOC: II 10:05 → 5TH 10:12 → II 13:08
PROVIDERS: ATTEND Internal Medicine
PROC: 3E0430M Introduction of Antineoplastic, Monoclonal Antibody, into Central Vein, Percutaneous Approach (ICD-10-PCS; principal; 2018-08-06)
DX: Z51.11 Encounter for antineoplastic chemotherapy (principal); C50.211 Malignant neoplasm of upper-inner quadrant of right female breast
CPT/HCPCS: 96413; 96415; J7050; J9306; J9355; 96417

== ENCOUNTER → 2018-08-11 | Outpatient (CLI) | payer MEDICARE, MEDICAID ==
--- NOTE | 2018-08-11 14:47 | RADIOLOGY REPORT (SQ) ---
EXAM DESCRIPTION: NM MUGA REST COMPLETED DATE/TIME: 08/11/2018 2:32 pm REASON FOR STUDY: Z08 ENCOUNTER FOR FOLLOW-UP EXAMINATION AFTER COMPLETED TREATMENT FOR MALIG Z08 E NCNTR FOR FOLLOW-UP EXAM AFTER TRTMT FOR MALIGNANT NEOP COMPARISON: None. RADIONUCLIDE AND DOSE: 24.8 mCi technetium 99m labeled red blood cells The route of agent administration: Intravenous TECHNIQUE: Following administration of the radionuclide, gated images of the heart are obtained in t hree projections. Left ventricular functional analysis performed. LIMITATIONS: None. FINDINGS: LEFT VENTRICULAR FUNCTION: EJECTION FRACTION: 77%. END-DIASTOLIC VOLUME: 65 mL. END-SYSTOLIC VOLUME: 19 mL. WALL MOTION: No focal wall motion abnormalities. OTHER: No other significant finding. IMPRESSION: NORMAL CARDIAC MUGA STUDY. NORMAL LEFT VENTRICULAR FUNCTION WITH VALUES ABOVE. TECHNICAL DOCUMENTATION: JOB ID: [id number] [employer]- All Rights Reserved Reading location - IP/workstation name: [email or web address]
== END ==
LOC: RAD 10:50
PROVIDERS: ATTEND Internal Medicine
DX: C50.211 Malignant neoplasm of upper-inner quadrant of right female breast (principal); Z08 Encounter for follow-up examination after completed treatment for malignant neoplasm
CPT/HCPCS: 78472; A9560; Q9969

== ENCOUNTER 2018-09-02 10:48 | Outpatient (CLI) | payer MEDICARE, MEDICAID ==
[~2018-09-02 10:48] MED LIST changes: -NORMAL SALINE IV PRN; -TRASTUZUMAB IV PRN
[2018-09-02] MEDS: TRASTUZUMAB IV PRN ×3 (12:31→12:35)
[2018-09-02] MEDS: NORMAL SALINE IV PRN ×3 (12:31→12:35)
[2018-09-02 13:01] VITALS: BP 90/50
== END 2018-09-02 13:10 | disposition home or self-care (01) ==
LOC: II 10:48 → 5TH 12:03 → II 13:10
PROVIDERS: ATTEND Internal Medicine
PROC: 3E0430M Introduction of Antineoplastic, Monoclonal Antibody, into Central Vein, Percutaneous Approach (ICD-10-PCS; principal; 2018-09-02)
PROC: 3E043GC Introduction of Other Therapeutic Substance into Central Vein, Percutaneous Approach (ICD-10-PCS; 2018-09-02)
DX: Z51.11 Encounter for antineoplastic chemotherapy (principal); C50.211 Malignant neoplasm of upper-inner quadrant of right female breast
CPT/HCPCS: 96413; 96374; 96360; J7050; J9306; J9355; 96417

== ENCOUNTER 2018-09-24 09:31 | Outpatient (CLI) | payer MEDICARE, MEDICAID ==
[~2018-09-24 09:31] MED LIST changes: +NORMAL SALINE IV PRN; +ONDANSETRON HCL/PF 16 MG in NORMAL SALINE 50 ML IV PRN; +TRASTUZUMAB IV PRN
[2018-09-24] MEDS ORDERED: NORMAL SALINE 500 ML IV PRN (09:32)
[2018-09-24 09:51] VITALS: BP 135/55
== END 2018-09-24 12:23 | disposition home or self-care (01) ==
LOC: II 09:31
PROVIDERS: ATTEND Internal Medicine
PROC: 3E0430M Introduction of Antineoplastic, Monoclonal Antibody, into Central Vein, Percutaneous Approach (ICD-10-PCS; principal; 2018-09-24)
PROC: 3E043GC Introduction of Other Therapeutic Substance into Central Vein, Percutaneous Approach (ICD-10-PCS; 2018-09-24)
DX: Z51.11 Encounter for antineoplastic chemotherapy (principal); C50.211 Malignant neoplasm of upper-inner quadrant of right female breast
CPT/HCPCS: 96413; 96415; 96367; 96374; 96360; J2405; J7050; J9306; J9355; 96417

== ENCOUNTER 2018-11-12 10:14 | Outpatient (CLI) | payer MEDICARE, MEDICAID ==
[~2018-11-12 10:14] MED LIST changes: -ONDANSETRON HCL/PF 16 MG in NORMAL SALINE 50 ML IV PRN
[2018-11-12 10:31] VITALS: BP 129/61
[2018-11-12] MEDS ORDERED: FERRIC CARBOXYMALTOSE 750 MG in NORMAL SALINE 250 ML IV PRN (12:30)
== END 2018-11-12 13:33 | disposition home or self-care (01) ==
LOC: II 10:14 → 5TH 10:16 → II 13:33
PROVIDERS: ATTEND Internal Medicine
PROC: 3E0430M Introduction of Antineoplastic, Monoclonal Antibody, into Central Vein, Percutaneous Approach (ICD-10-PCS; principal; 2018-11-12)
PROC: 3E043GC Introduction of Other Therapeutic Substance into Central Vein, Percutaneous Approach (ICD-10-PCS; 2018-11-12)
DX: Z51.11 Encounter for antineoplastic chemotherapy (principal); C50.211 Malignant neoplasm of upper-inner quadrant of right female breast; D50.9 Iron deficiency anemia, unspecified; N18.3 Chronic kidney disease, stage 3 (moderate)
CPT/HCPCS: 96413; 96415; J7050; J1642; J1439; J9306; J9355; 96367; 96417

== ENCOUNTER → 2018-11-15 | Outpatient (CLI) | payer MEDICARE, MEDICAID ==
--- NOTE | 2018-11-15 12:47 | RADIOLOGY REPORT (SQ) ---
EXAM DESCRIPTION: NM MUGA REST COMPLETED DATE/TIME: 11/15/2018 12:31 pm REASON FOR STUDY: ENCNTR FOR FOLLOW-UP EXAM AFTER TRTMT FOR MALIGNANT NEOPLASM Z51.11 ENCOUNTER FOR ANTINEOPLASTIC CHEMOTHERAPY Z08 ENCNTR FOR FOLLOW-UP EXAM AFTER TRTMT FOR MALIGNANT NEOP COMPARISON: 08/11/2018. RADIONUCLIDE AND DOSE: 26.7 mCi technetium 99m labeled red blood cells The route of agent administration: Intravenous TECHNIQUE: Following administration of the radionuclide, gated images of the heart are obtained in t hree projections. Left ventricular functional analysis performed. LIMITATIONS: None. FINDINGS: LEFT VENTRICULAR FUNCTION: EJECTION FRACTION: 77%. END-DIASTOLIC VOLUME: 53 mL. END-SYSTOLIC VOLUME: 22 mL. WALL MOTION: No focal wall motion abnormalities. OTHER: No other significant finding. IMPRESSION: NORMAL CARDIAC MUGA STUDY. NORMAL LEFT VENTRICULAR FUNCTION WITH VALUES ABOVE. TECHNICAL DOCUMENTATION: JOB ID: [id number] [employer]- All Rights Reserved Reading location - IP/workstation name: [email or web address]
== END ==
LOC: RAD 10:52
PROVIDERS: ATTEND Physician Assistant Medical
DX: Z13.6 Encounter for screening for cardiovascular disorders (principal); Z85.3 Personal history of malignant neoplasm of breast; Z51.11 Encounter for antineoplastic chemotherapy; Z08 Encounter for follow-up examination after completed treatment for malignant neoplasm
CPT/HCPCS: 78472; A9560; Q9969

== ENCOUNTER 2018-12-03 10:03 | Outpatient (CLI) | payer MEDICARE, MEDICAID ==
[2018-12-03 10:18] VITALS: BP 132/67
== END 2018-12-03 12:52 | disposition home or self-care (01) ==
LOC: II 10:03 → 5TH 10:06 → II 12:52
PROVIDERS: ATTEND Internal Medicine
PROC: 3E0430M Introduction of Antineoplastic, Monoclonal Antibody, into Central Vein, Percutaneous Approach (ICD-10-PCS; principal; 2018-12-03)
DX: Z51.11 Encounter for antineoplastic chemotherapy (principal); C50.211 Malignant neoplasm of upper-inner quadrant of right female breast
CPT/HCPCS: 96413; 96415; 96374; J7050; J1642; J9306; J9355; 96417

== ENCOUNTER → 2018-12-16 | Outpatient (CLI) | payer MEDICARE, MEDICAID ==
--- NOTE | 2018-12-16 16:21 | WOMENS IMAGING REPORT ---
EXAM DESCRIPTION: 3D SCREENING MAMMO LEFT COMPLETED DATE/TIME: 12/16/2018 1:14 pm REASON FOR STUDY: Z12.31 ROUTINE 3D LEFT UNILATERAL SCREENING Z12.31 ENCNTR SCREEN MAMMOGRAM FOR MA LIGNANT NEOPLASM OF VISHNU COMPARISON: Multiple since 2016 EXAM PARAMETERS: Standard craniocaudal and mediolateral oblique views of the breast recorded using d igital acquisition and breast tomosynthesis. Read with the assistance of CAD. .[facility] - [employer] Political Reporter Version 9.2 LIMITATIONS: None. FINDINGS: BREAST LATERALITY: Left No suspicious masses, suspicious calcifications or architectural distortion. No areas of suspicion. IMPRESSION: NEGATIVE MAMMOGRAM. BIRADS 1. BREAST DENSITY: a. The breast is almost entirely fatty. BIRAD: ASSESSMENT: 1 Negative RECOMMENDATION: RECOMMENDATION: ROUTINE SCREENING. COMMENT: The patient has been notified of the results by letter per SA requirements. Additional no tification policies are in place for contacting patient with suspicious or incomplete findings. Quality ID #[id number]: The [employer] recommends an annual screening mammogram for women aged 40 years or over. This facility utilizes a reminder system to ensure that all patients receive reminder letters, and/or direct phone calls for appointments. This includes reminders for routine scr eening mammograms, diagnostic mammograms, or other Breast Imaging Interventions when appropriate. Th is patient will be placed in the appropriate reminder system. TECHNICAL DOCUMENTATION: FINDING NUMBER: (1) ASSESSMENT: (1) JOB ID: [id number] [employer]- All Rights Reserved Reading location - IP/workstation name: [email or web address]
== END ==
LOC: WI 13:00
PROVIDERS: ATTEND Physician Assistant Medical
DX: Z12.31 Encounter for screening mammogram for malignant neoplasm of breast (principal)

== ENCOUNTER 2018-12-24 10:01 | Outpatient (CLI) | payer MEDICARE, MEDICAID ==
[2018-12-24 10:20] VITALS: BP 126/62
== END 2018-12-24 12:48 | disposition home or self-care (01) ==
LOC: II 10:01 → 5TH 10:18 → II 12:48
PROVIDERS: ATTEND Internal Medicine
PROC: 3E0430M Introduction of Antineoplastic, Monoclonal Antibody, into Central Vein, Percutaneous Approach (ICD-10-PCS; principal; 2018-12-24)
DX: Z51.11 Encounter for antineoplastic chemotherapy (principal); C50.211 Malignant neoplasm of upper-inner quadrant of right female breast
CPT/HCPCS: 96413; 96417; J7050; J1642; J9306; J9355

== ENCOUNTER → 2018-12-27 | Outpatient (CLI) | payer MEDICARE, MEDICAID ==
--- NOTE | 2018-12-27 09:38 | RADIOLOGY REPORT (SQ) ---
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 TECHNIQUE: Multiplanar imaging includes noncontrasted T1, T2, FLAIR, diffusion with ADC map and post gadolinium contrast T1 sequences. Images stored on PACS. CONTRAST TYPE AND DOSE: 10 mL Dotarem. RENAL FUNCTION: Not indicated. ACR Type II contrast agent associated with few, if any, unconfounded cases of NSF LIMITATIONS: None. FINDINGS: ANATOMY: 4 to 5 mm aneurysm is present along the left para clinoid IA T8 near the ophthal sunny artery origin/anterior clinoid process. This is best shown on axial T2 image 15 and coronal imag e 19. [place] MRA evidence recommended for followup. CSF SPACES: Normal in size and contour. No hemorrhage. CEREBRUM: In the left posterior frontal heredia-white junction over the convexity, along the precentral gyrus there is a metastatic lesion, 2.3 cm AP x 1.7 cm craniocaudad by 2.3 cm craniocaudad. This les ion is well-circumscribed, cystic, with enhancing rim. Centrally there is bright T1 signal precontra st from hemorrhagic or proteinaceous material. Halo of surrounding vasogenic edema on T2/FLAIR. No midline shift although there is mild local mass effect. This finding is best shown on axial image 21 , coronal image 19/29 and sagittal image 27/49. A second, smaller enhancing metastatic nodule is present in the left occipital lobe medially, 9 mm in size on axial postcontrast T1 image 16/28, coronal postcontrast image 20/29 and sagittal image 26/49 . No surrounding vasogenic edema. No mass effect. There is benign a anatomic variant of the right frontal venous angioma of doubtful clinical significa nce, best shown on coronal postcontrast T1 image /. POSTERIOR FOSSA: No signal alteration. No hemorrhage. No edema, masses, or mass effect. Internal rosalina tory canals, cerebellopontine angles, mastoids normal. No enhancing lesions. No abnormal enhancement post contrast. DIFFUSION IMAGING: Negative for acute or subacute infarction. ORBITS: No masses. Globes normal. PARANASAL SINUSES: No fluid levels. Mucosa normal. OTHER: No other significant finding. IMPRESSION: Left posterior frontal convexity brain parenchymal metastatic lesion Left occipital lobe brain parenchymal metastatic lesion Unruptured left carotid terminus region aneurysm for which [place] MRA exam is recommended EVIDENCE OF ACUTE STROKE: NO. TECHNICAL DOCUMENTATION: JOB ID: [id number] [employer]- All Rights Reserved Reading location - IP/workstation name: [email or web address]
--- NOTE | 2018-12-27 10:53 | RADIOLOGY REPORT (SQ) ---
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 TECHNIQUE: CT scan of the chest performed using helical scanning technique with dynamic intravenous contrast injection. Images reviewed with lung, soft tissue and bone windows. Reconstructed coronal and sagittal MPR and MIP images reviewed. All images stored on PACS. All CT scanners at this facility use dose modulation, iterative reconstruction, and/or weight based d osing when appropriate to reduce radiation dose to as low as reasonably achievable (ALARA). [facility]: Dose Right [facility]: CareDose [facility]: Dose Right [facility]: Teradose 4D [facility]: BigString CONTRAST TYPE AND DOSE: contrast/concentration: Isovue 350.00 mg/ml; Total Contrast Delivered: 80.0 ml; Total Saline Delivered: 42.3 ml RENAL FUNCTION: Creatinine 1 RADIATION DOSE: CT Rad equipment meets quality standard of care and radiation dose reduction techniq ues were employed. CTDIvol: 4.1 mGy. DLP: 160 mGy-cm. . LIMITATIONS: None. FINDINGS: LUNGS AND PLEURA: There is a cavitary mass involving the right hilum with distal opacifica tion. This measures 56 x 50 mm on image 77 series 4. There is considerable centrilobular emphysema. There is a very small area of irregular opacification in the left lower lobe posteriorly on images 96 through 98. HILAR AND MEDIASTINAL STRUCTURES: There is mild precarinal adenopathy. HEART AND VASCULAR STRUCTURES: No aneurysm or dissection. No central pulmonary emboli. No pericardi al effusion. HARDWARE: None in the chest. UPPER ABDOMEN: No significant findings. Limited exam. THYROID AND OTHER SOFT TISSUES: No masses. No adenopathy. BONES: There are sclerotic changes in the upper lumbar spine that appear to be reactive. No osseous metastases are appreciated. OTHER: No other significant finding. IMPRESSION: Right inferior hilar mass with postobstructive consolidation in the right lower lobe. TECHNICAL DOCUMENTATION: JOB ID: [id number] Quality ID # [id number]: Final reports with documentation of one or more dose reduction techniques (e.g., Au tomated exposure control, adjustment of the mA and/or kV according to patient size, use of iterative reconstruction technique) 2010 [employer]- All Rights Reserved Reading location - IP/workstation name: [email or web address]
== END ==
LOC: RAD 07:11
PROVIDERS: ATTEND Physician Assistant Medical
DX: C50.211 Malignant neoplasm of upper-inner quadrant of right female breast (principal)
CPT/HCPCS: 82565; 70553; 71260; A9576

== ENCOUNTER → 2019-01-01 | Outpatient (CLI) | payer MEDICARE, MEDICAID ==
--- NOTE | 2019-01-01 16:11 | RADIOLOGY REPORT (SQ) ---
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 Images reformatted using 3-D MIPS. LIMITATIONS: None. FINDINGS: 4 mm aneurysm along the left ophthalmic segment carotid artery protruding laterally. This is best shown on axial source image 71/164 and maximum intensity projected image series 502, image 9 . Remainder of the [place] is otherwise unremarkable. No other aneurysm. No vascular stenosi s or vascular malformation. IMPRESSION: Unruptured 4 mm aneurysm, anterior left parasellar carotid artery at the ophthalmic daria ry origin. TECHNICAL DOCUMENTATION: JOB ID: [id number] [employer]- All Rights Reserved Reading location - IP/workstation name: [email or web address]
== END ==
LOC: RAD 08:32
PROVIDERS: ATTEND Physician Assistant Medical
DX: C50.211 Malignant neoplasm of upper-inner quadrant of right female breast (principal); C79.31 Secondary malignant neoplasm of brain
CPT/HCPCS: 70544

== ENCOUNTER → 2019-01-02 | Outpatient (CLI) | payer MEDICARE, MEDICAID ==
--- NOTE | 2019-01-03 10:02 | RADIOLOGY REPORT (SQ) ---
EXAM DESCRIPTION: PET CT SKULL/THIGH COMPLETED DATE/TIME: 01/02/2019 8:02 pm REASON FOR STUDY: (C50.211)MALIG NEOPLM OF UPPER-INNER QUADRANT OF RIGHT FEMALE BREAST C50.211 [place] G NEOPLM OF UPPER-INNER QUADRANT OF RIGHT FEMALE COMPARISON: Bilateral breast MRI 12/03/2017 RADIONUCLIDE AND DOSE: 13.4 mCi F18 FDG The route of agent administration: Intravenous FASTING BLOOD SUGAR: 118 mg/dl CONTRAST TYPE AND DOSE: No CT contrast given. TECHNIQUE: Blood glucose level was verified. Above dose of FDG was injected intravenously. 2-D seg mented attenuation correction images were obtained from the base of the skull to the midthighs. Nonc ontrast CT images were obtained for attenuation correction and fusion with emission images. CT image s were performed without oral or intravenous contrast and are not sensitive for parenchymal lesions. A series of overlapping emission PET images were obtained. Images reviewed and manipulated at [facility] work station by the radiologist. Images stored on PACS. LIMITATIONS: None. FINDINGS: HEAD AND NECK: No areas of abnormal metabolic activity in the soft tissues of the head and neck. CHEST: A right lower lobe cavitary thick-walled lesion with air-fluid level is present in the medial right lung base abutting the undersurface of the right hilum. This measures 5.3 x 4.1 cm on axial im age 88, with an SUV of 6. This could be infectious or inflammatory, possibly related aspiration pneu monia. Metastatic involvement is possible. No metabolically active mediastinal lymph nodes. Patient is post right mastectomy. No increased upt carlos a along the anterior right chest wall. ABDOMEN AND PELVIS: No areas of abnormal metabolic activity in the abdomen or pelvis. Expected physi ologic activity is present in the genitourinary system and bowel. PROXIMAL LOWER EXTREMITIES: No areas of abnormal metabolic activity in the soft tissues of the lower extremities. BONES: No abnormal metabolic activity in the visualized skeleton. ADDITIONAL CT FINDINGS: Obstructive lung disease. Left permanent central line tip superior vena cava . Calcified carotid bifurcations. Right mastectomy. OTHER: Liver background activity 2.2 SUV. Blood pool background activity 1.7 SUV. IMPRESSION: Cavitary right lower lobe lesion with air-fluid level and peripheral rim of increased ac tivity. Differential is cavitary pneumonia from aspiration versus metastatic disease TECHNICAL DOCUMENTATION: JOB ID: [id number] [employer]- All Rights Reserved Reading location - IP/workstation name: [email or web address]
== END ==
LOC: RAD 15:38
PROVIDERS: ATTEND Physician Assistant Medical
DX: C50.211 Malignant neoplasm of upper-inner quadrant of right female breast (principal)
CPT/HCPCS: 78815; A9552

== ENCOUNTER 2019-03-11 12:01 | Inpatient (IN) | payer MEDICARE, MEDICAID ==
--- NOTE | 2019-03-11 12:21 | ER Document Report ---
ED Medical Screen (RME) - General Chief Complaint: Shortness Of Breath Stated Complaint: SHORTNESS OF BREATH Time Seen by Provider: 03/11/19 12:13 Primary Care Provider: LEONILA OCHOA MD [Primary Care Provider] - Follow up as needed Mode of Arrival: Medic Information source: Patient Notes: 68-year-old female presented to ED for severe shortness of breath. She came to the emergency room via EMS. Respirations are 32. They did have on her nonrebreather mask. She does have signs and symptoms of COPD so I have ordered a BiPAP. She states she does not have a history of COPD. Lungs are very coarse. I have greeted and performed a rapid initial assessment of this patient. A comprehensive ED assessment and evaluation of the patient, analysis of test res ults and completion of medical decision making process will be conducted by an additional ED providers. TRAVEL OUTSIDE OF THE [place] IN LAST 30 DAYS: No - Related Data Allergies/Adverse Reactions: No Known Allergies Allergy (Verified 01/22/19 13:31) Past Medical History - Past Medical History Cardiac Medical History: Denies: Hx Coronary Artery Disease, Hx Heart Attack, Hx Hypertension Pulmonary Medical History: Denies: Hx Asthma, Hx Bronchitis, Hx COPD, Hx Pneumonia Neurological Medical History: Denies: Hx Cerebrovascular Accident, Hx Seizures Renal/ Medical History: Denies: Hx Peritoneal Dialysis Malignancy Medical History: Reports: Hx Brain Cancer, Hx Breast Cancer, Hx Lung Cancer Musculoskeltal Medical History: Denies Hx Arthritis Psychiatric Medical History: Reports: Hx Anxiety, Hx Bipolar Disorder, Hx Depression Past Surgical History: Reports: Hx Breast Surgery - Right Breast Mastectomy 2017, Other - Breast surgery, chest tube placement. Denies: Hx Hysterectomy, Hx Pacemaker - Immunizations Hx Diphtheria, Pertussis, Tetanus Vaccination: Yes History of Influenza Vaccine for 03/2017 - 08/2017 Season: Yes Influenza Administration Date for 03/2017 - 08/2017 Season: 03/29/17 Doctor's Discharge - Discharge Referrals: LEONILA OCHOA MD [Primary Care Provider] - Follow up as needed
--- NOTE | 2019-03-11 12:46 | ER Document Report ---
ED General - General Chief Complaint: Shortness Of Breath Stated Complaint: SHORTNESS OF BREATH Time Seen by Provider: 03/11/19 12:13 Primary Care Provider: LEONILA OCHOA MD [Primary Care Provider] - Follow up as needed Mode of Arrival: Medic TRAVEL OUTSIDE OF THE [place] IN LAST 30 DAYS: No - HPI Notes: 68 y/o presenting to ED for evaluation of cough and sob she states her cough has been mildly productive of greenish mucus and some mild blood tinged coloration as well she denies h/o pe or dvt she has had chills but no fever she has a h/o breast cancer - Related Data Allergies/Adverse Reactions: No Known Allergies Allergy (Verified 01/22/19 13:31) Past Medical History - General Information source: Patient - Social History Smoking Status: Unknown if Ever Smoked Family History: Reviewed & Not Pertinent Patient has suicidal ideation: No Patient has homicidal ideation: No - Past Medical History Cardiac Medical History: Denies: Hx Coronary Artery Disease, Hx Heart Attack, Hx Hypertension Pulmonary Medical History: Denies: Hx Asthma, Hx Bronchitis, Hx COPD, Hx Pneumonia Neurological Medical History: Denies: Hx Cerebrovascular Accident, Hx Seizures Renal/ Medical History: Denies: Hx Peritoneal Dialysis Malignancy Medical History: Reports: Hx Brain Cancer, Hx Breast Cancer, Hx Lung Cancer Musculoskeletal Medical History: Denies Hx Arthritis Psychiatric Medical History: Reports: Hx Anxiety, Hx Bipolar Disorder, Hx Depression Past Surgical History: Reports: Hx Breast Surgery - Right Breast Mastectomy 2018, Other - Breast surgery, chest tube placement. Denies: Hx Hysterectomy, Hx Pacemaker - Immunizations Hx Diphtheria, Pertussis, Tetanus Vaccination: Yes Hx Pneumococcal Vaccination: 03/29/10 Review of Systems - Review of Systems Constitutional: No symptoms reported EENT: No symptoms reported Cardiovascular: No symptoms reported Respiratory: Cough, Hemoptysis, Short of breath, Sputum Gastrointestinal: No symptoms reported Genitourinary: No symptoms reported Female Genitourinary: No symptoms reported Musculoskeletal: No symptoms reported Skin: No symptoms reported Hematologic/Lymphatic: No symptoms reported Neurological/Psychological: No symptoms reported Physical Exam - Vital signs Vitals: Resp Pulse Ox 31 H 97 03/11/19 12:10 03/11/19 12:10 Interpretation: Normal - General General appearance: Appears well, Alert - HEENT Head: Normocephalic, Atraumatic Eyes: Normal Pupils: PERRL - Respiratory Respiratory status: Respiratory distress Chest status: Nontender Breath sounds: Decreased air movement, Productive cough Chest palpation: Normal - Cardiovascular Rhythm: Regular Heart sounds: Normal auscultation Murmur: No - Abdominal Inspection: Normal Distension: No distension Bowel sounds: Normal Tenderness: Nontender Organomegaly: No organomegaly - Back Back: Normal, Nontender - Extremities General upper extremity: Normal inspection, Nontender, Normal color, Normal ROM, Normal temperature General lower extremity: Normal inspection, Nontender, Normal color, Normal ROM, Normal temperature, Normal weight bearing. No: Esther's sign - Neurological Neuro grossly intact: Yes Cognition: Normal Orientation: AAOx4 Ramírez Coma Scale Eye Opening: Spontaneous Ramírez Coma Scale Verbal: Oriented [place] Coma Scale Motor: Obeys Commands [place] Coma Scale Total: 15 Speech: Normal Motor strength normal: LUE, RUE, LLE, RLE Sensory: Normal - Psychological Associated symptoms: Normal affect, Normal mood - Skin Skin Temperature: Warm Skin Moisture: Dry Skin Color: Normal Course - Re-evaluation Re-evalutation: 03/11/19 14:31 patient w/ pna on cxr w/ leukocytosis abx started in ED admit requested - Vital Signs Vital signs: Temp Pulse Resp BP Pulse Ox 97.8 F 32 H 103/55 L 100 03/11/19 12:15 03/11/19 12:15 03/11/19 12:15 03/11/19 12:15 - Laboratory Result Diagrams: 03/11/19 12:26 03/11/19 12:26 Laboratory results interpreted by me: 03/11/19 03/11/19 03/11/19 12:26 12:26 12:26 WBC 25.1 H RBC 2.38 L Hgb 7.0 L Hct 21.4 L RDW 17.4 H Plt Count 814 H Seg Neuts % (Manual) 84 H Lymphocytes % (Manual) 9 L Abs Neuts (Manual) 22.1 H PT APTT ABG pH 7.48 H ABG pO2 151.6 H ABG HCO3 28.8 H ABG Total CO2 30.0 H ABG O2 Saturation 99.1 H Sodium 132.2 L Chloride 94 L Calcium 8.0 L Alkaline Phosphatase 179 H Creatine Kinase 21 L NT-Pro-B Natriuret Pep Total Protein 5.5 L Albumin 2.5 L 03/11/19 03/11/19 12:26 13:09 WBC RBC Hgb Hct RDW Plt Count Seg Neuts % (Manual) Lymphocytes % (Manual) Abs Neuts (Manual) PT 18.4 H APTT 40.4 H ABG pH ABG pO2 ABG HCO3 ABG Total CO2 ABG O2 Saturation Sodium Chloride Calcium Alkaline Phosphatase Creatine Kinase NT-Pro-B Natriuret Pep 2550 H Total Protein Albumin - Diagnostic Test Radiology reviewed: Reports reviewed - EKG Interpretation by Me Additional EKG results interpreted by me: 03/11/19 14:33 sinus tachycardia rate of 113, no ST segment changes Critical Care Note - Critical Care Note Total time excluding time spent on procedures (mins): 35 Discharge - Discharge Clinical Impression: Pneumonia Qualifiers: Pneumonia type: due to unspecified organism Laterality: right Lung location: unspecified part of lung Qualified Code(s): J18.9 - Pneumonia, unspecified organism Breast cancer Qualifiers: Breast location: unspecified site of breast Estrogen receptor status: unspecified Patient sex: female Laterality: right Qualified Code(s): C50.911 - Malignant neoplasm of unspecified site of right female breast Anemia Qualifiers: Anemia type: unspecified type Qualified Code(s): D64.9 - Anemia, unspecified Condition: Stable Disposition: ADMITTED INPATIENT Admitting Provider: Jameel (Hospitalist) Unit Admitted: IMCU Referrals: LEONILA OCHOA MD [Primary Care Provider] - Follow up as needed
[2019-03-11 12:48] LABS: ARTERIAL BLOOD BASE EXCESS 4.9 mmol/L; ARTERIAL BLOOD FIO2 15L; ARTERIAL BLOOD H2CO3 1.19 mmol/L (1.05-1.35); ARTERIAL BLOOD HCO3 28.8 mmol/L (20-24); ARTERIAL BLOOD O2 SATURATION 99.1 % (94-98); ARTERIAL BLOOD PCO2 39.5 mmHg (35-45); ARTERIAL BLOOD PH 7.48 (7.35-7.45); ARTERIAL BLOOD PO2 151.6 mmHg (80-100)
[2019-03-11 12:55] LABS: HEMATOCRIT 21.4 % (36.0-47.0); MEAN CORPUSCULAR HEMOGLOBIN 29.6 pg (27.0-33.4); MEAN CORPUSCULAR HGB CONC 32.8 g/dL (32.0-36.0); MEAN CORPUSCULAR VOLUME 90 fl (80-97); PLATELET COUNT 814 10^3/uL (150-450); RED BLOOD COUNT 2.38 10^6/uL (3.72-5.28); RED CELL DISTRIBUTION WIDTH 17.4 % (11.5-14.0); WHITE BLOOD COUNT 25.1 10^3/uL (4.0-10.5)
[2019-03-11 13:12] LABS: ALBUMIN 2.5 g/dL (3.5-5.0); ALKALINE PHOSPHATASE 179 U/L (38-126); ANION GAP 10 (5-19); ASPARTATE AMINO TRANSFERASE 36 U/L (14-36); BILIRUBIN,DIRECT 0.4 mg/dL (0.0-0.4); BILIRUBIN,TOTAL 0.5 mg/dL (0.2-1.3); BLOOD UREA NITROGEN 14 mg/dL (7-20); CARBON DIOXIDE 28 mmol/L (22-30); CHLORIDE 94 mmol/L (98-107); CREATINE KINASE 21 U/L (30-135); GLUCOSE 89 mg/dL (75-110); POTASSIUM 4.5 mmol/L (3.6-5.0); TOTAL PROTEIN 5.5 g/dL (6.3-8.2)
[2019-03-11 13:22] LABS: ABSOLUTE LYMPHOCYTES# (MANUAL) 2.3 10^3/uL (0.5-4.7); ABSOLUTE MONOCYTES # (MANUAL) 0.8 10^3/uL (0.1-1.4); BAND NEUTROPHILS % (MANUAL) 4 % (3-5); BASOPHILS % (MANUAL) 0 % (0-2); EOSINOPHILS % (MANUAL) 0 % (0-6); LYMPHOCYTES % (MANUAL) 9 % (13-45); MONOCYTES % (MANUAL) 3 % (3-13); NUCLEATED RED BLOOD CELLS 1 /100 WBC (0); SEGMENTED NEUTROPHILS % (MAN) 84 % (42-78); TOTAL CELLS COUNTED 100
[2019-03-11 13:24] LABS: ANISOCYTOSIS SLIGHT; CREATINE KINASE MB 0.31 ng/mL (<4.55); HYPOCHROMASIA 1+; PLATELET COMMENT INCREASED; POLYCHROMASIA 1+; TROPONIN I 0.019 ng/mL
[2019-03-11 13:25] LABS: TARGET CELLS SLIGHT
[2019-03-11 13:26] LABS: INTERNATIONAL RATION (INR) 1.51; PROTHROMBIN TIME 18.4 SEC (11.4-15.4)
[2019-03-11 13:27] LABS: PARTIAL THROMBOPLASTIN TIME 40.4 SEC (23.5-35.8)
[2019-03-11] MEDS ORDERED: VANCOMYCIN HCL INJ 1000 MG VIAL IV ONE (13:43)
[2019-03-11] MEDS ORDERED: PIPERACILLIN/TAZOBACTAM 4.5 GM VIAL IV ONE (13:43)
--- NOTE | 2019-03-11 14:49 | RADIOLOGY REPORT (SQ) ---
EXAM DESCRIPTION: CHEST SINGLE VIEW COMPLETED DATE/TIME: 03/11/2019 2:38 pm REASON FOR STUDY: cough COMPARISON: 01/28/2019 EXAM PARAMETERS: NUMBER OF VIEWS: One view. TECHNIQUE: Single frontal radiographic view of the chest acquired. RADIATION DOSE: NA LIMITATIONS: None. FINDINGS: LUNGS AND PLEURA: Increased opacification in the right hemithorax. MEDIASTINUM AND HILAR STRUCTURES: No masses. Contour normal. HEART AND VASCULAR STRUCTURES: Cardiomegaly. No staci pulmonary edema. BONES: No acute findings. HARDWARE: Injection port. OTHER: No other significant finding. IMPRESSION: Cardiomegaly without staci pulmonary edema. Possible right pleural effusion. Cannot ex clude airspace disease in the right lower lobe. TECHNICAL DOCUMENTATION: JOB ID: [id number] [employer]- All Rights Reserved Reading location - IP/workstation name: [email or web address]
[2019-03-11] MEDS ORDERED: VANCOMYCIN HCL INJ 1000 MG VIAL ONE (15:49)
[2019-03-11] MEDS ORDERED: VANCOMYCIN HCL INJ 500 MG VIAL ONE (15:49)
[2019-03-11] MEDS ORDERED: ENOXAPARIN SODIUM INJ 40 MG/0.4 ML DISP.SYRIN SUBCUT ONE (20:00)
[2019-03-11] MEDS: IPRATROPIUM/ALBUTEROL 0.5-2.5 MG/3 ML AMPUL NEB SCH (20:56)
[2019-03-11] MEDS: HYDROCODONE/ACETAMINOPHEN 5-325 MG TABLET PO PRN (21:08)
[2019-03-11] MEDS: ONDANSETRON HCL INJ/PF 4 MG/2 ML SDV IV PRN (21:09)
[2019-03-11] MEDS: POTASSI CL 20 MEQ/D5-1/2NS 1L 1,000 ML IV PRN (21:10)
--- NOTE | 2019-03-11 22:26 | PDOC H&P ---
History of Present Illness Admission Date/PCP: 03/11/19 15:25 LEONILA OCHOA MD History of Present Illness: RAMÍREZ LOPEZ is a 68 year old female, she came to the emergency room for tania luation of cough, shortness of breath, the cough is productive of sputum, colored, blood-tinged., Initial chest x-ray demonstrated possible right pleural effusion. Patient is well-known to me from last encounter she is Dr. Santamaria's patient, she has a history of metastatic breast cancer, brain tumor, probably primary lung tumor, I discussed with patient about CODE STATUS, she wants to be a DNR, I requested for CT angiogram of the chest, it demonstrated a centimeter complex cystic collection in the right lower hemithorax this includes small gas bubble and 2 metallic fragments that measure up to 1 cm also found was moderate right lower lobe and right middle lobe consolidation. Small patchy and nodular scattered opacities of both lung ureña including 2 cm lesion of the left lower lobe, there is extensive emphysematous appearance of the lung there was no pulmonary embolism. She had a PET scan back in January 02, 2019, the PET scan demonstrated a right lower lobe cavitary thick one lesion with the air-fluid level in the medial right lung base abutting the undersurface of the right hilum. This measures 5.3 x 4.1 cm. The last time she was admitted she has spontaneous pneumothorax she required a chest tube. She recently had bronchoscopy done outpatient the last time she was admitted, she told me that since the last time she was admitted she has not had any chemotherapy, most likely the lesion in the lung is neoplasm seems to be worsening cannot completely rule out abscess Past Medical History Malignancy Medical History: Reports: Brain Cancer, Breast Cancer, Lung Cancer Psychiatric Medical History: Reports: Bipolar Disorder, Depression Past Surgical History Past Surgical History: Reports: Other - Breast surgery, chest tube placement Social History Smoking Status: Former Smoker Frequency of Alcohol Use: None Hx Recreational Drug Use: No Hx Prescription Drug Abuse: No Family History Family History: Reviewed & Not Pertinent Parental Family History Reviewed: Yes Children Family History Reviewed: Yes Sibling(s) Family History Reviewed.: Yes Medication/Allergy Home Medications: Letrozole [Femara 2.5 mg Tablet] 2.5 mg PO DAILY 01/23/19 Ondansetron HCl [Zofran 8 mg Tablet] 8 mg PO Q8HP PRN 01/23/19 Paroxetine HCl [Paxil] 40 mg PO QHS 01/23/19 Prochlorperazine Maleate [Compazine 10 mg Tablet] 10 mg PO Q6HP PRN 01/23/19 Quetiapine Fumarate [Seroquel 100 mg Tablet] 100 mg PO BID@0600,1400 01/23/19 Denosumab [Prolia 60 mg/ml Syr 1 ml] 60 mg INJ ASDIR PRN 03/11/19 Dronabinol [Marinol 2.5 mg Capsule] 2.5 mg PO BID 03/11/19 Hydrocodone Bit/Acetaminophen [Hydrocodon-Acetaminophen 5-325] 1 each PO Q6HP PRN 03/11/19 Lorazepam [Ativan 1 mg Tablet] 1 mg PO BIDP PRN MDD 3 mg 03/11/19 Quetiapine Fumarate [Seroquel 100 mg Tablet] 200 mg PO QHS 03/11/19 Trazodone HCl [Desyrel 50 mg Tablet] 50 mg PO QHS 03/11/19 Allergies/Adverse Reactions: No Known Allergies Allergy (Verified 01/22/19 13:31) Review of Systems Constitutional: ABSENT: chills, fever(s), headache(s), weight gain, weight loss Eyes: ABSENT: visual disturbances Ears: ABSENT: hearing changes Cardiovascular: PRESENT: dyspnea on exertion Respiratory: PRESENT: cough, dyspnea, sputum. ABSENT: hemoptysis Gastrointestinal: ABSENT: abdominal pain, constipation, diarrhea, hematemesis, hematochezia, nausea, vomiting Genitourinary: ABSENT: dysuria, hematuria Musculoskeletal: ABSENT: joint swelling Integumentary: ABSENT: rash, wounds Neurological: ABSENT: abnormal gait, abnormal speech, confusion, dizziness, focal weakness, syncope Psychiatric: ABSENT: anxiety, depression, homidical ideation, suicidal ideation Endocrine: ABSENT: cold intolerance, heat intolerance, menstrual abnormalities, polydipsia, polyuria Hematologic/Lymphatic: ABSENT: easy bleeding, easy bruising, lymphadenopathy Physical Exam Vital Signs: Temp Pulse Resp BP Pulse Ox 97.8 F 103 H 16 105/52 L 98 03/11/19 12:15 03/11/19 20:50 03/11/19 20:50 03/11/19 18:00 03/11/19 20:50 General appearance: PRESENT: mild distress Respiratory exam: PRESENT: clear to auscultation kevin Cardiovascular exam: PRESENT: +S1, +S2 GI/Abdominal exam: PRESENT: soft Neurological exam: PRESENT: alert, CN II-XII grossly intact Results Laboratory Results: 03/11/19 12:26 03/11/19 12:26 03/11/19 03/11/19 03/11/19 12:26 12:26 12:26 WBC 25.1 H RBC 2.38 L Hgb 7.0 L Hct 21.4 L MCV 90 MCH 29.6 MCHC 32.8 RDW 17.4 H Plt Count 814 H Seg Neutrophils % Not Reportable Carbonic Acid 1.19 HCO3/H2CO3 Ratio 24:1 ABG pH 7.48 H ABG pCO2 39.5 ABG pO2 151.6 H ABG HCO3 28.8 H ABG O2 Saturation 99.1 H ABG Base Excess 4.9 FiO2 15L Sodium 132.2 L Potassium 4.5 Chloride 94 L Carbon Dioxide 28 Anion Gap 10 BUN 14 Creatinine 0.63 Est GFR ( Amer) > 60 Glucose 89 Lactic Acid Calcium 8.0 L Total Bilirubin 0.5 AST 36 Alkaline Phosphatase 179 H Total Protein 5.5 L Albumin 2.5 L Blood Type Antibody Screen 03/11/19 03/11/19 13:11 13:11 WBC RBC Hgb Hct MCV MCH MCHC RDW Plt Count Seg Neutrophils % Carbonic Acid HCO3/H2CO3 Ratio ABG pH ABG pCO2 ABG pO2 ABG HCO3 ABG O2 Saturation ABG Base Excess FiO2 Sodium Potassium Chloride Carbon Dioxide Anion Gap BUN Creatinine Est GFR ( Amer) Glucose Lactic Acid 1.4 Calcium Total Bilirubin AST Alkaline Phosphatase Total Protein Albumin Blood Type O POSITIVE Antibody Screen NEGATIVE 03/11/19 03/11/19 03/11/19 12:26 12:26 12:26 Creatine Kinase 21 L CK-MB (CK-2) 0.31 Troponin I 0.019 NT-Pro-B Natriuret Pep 2550 H Impressions: Chest X-Ray 03/11/19 00:00 IMPRESSION: Cardiomegaly without staci pulmonary edema. Possible right pleural effusion. Cannot exclude airspace disease in the right lower lobe. Assessment & Plan - Diagnosis (1) Lung abscess Qualifiers: Pulmonary abscess pneumonia presence: with pneumonia Laterality: left Lung location: lower lobe of lung Qualified Code(s): J85.1 - Abscess of lung with pneumonia Is this a current diagnosis for this admission?: Yes Plan: CT chest demonstrated a complex cystic collection the left lower hemithorax with small gas bubbles, cannot rule out empyema/abscess. She may need a CAT scan directed pigtail for drainage (2) Breast cancer Qualifiers: Breast location: unspecified site of breast Estrogen receptor status: unspecified Patient sex: female Laterality: right Qualified Code(s): C50.911 - Malignant neoplasm of unspecified site of right female breast Is this a current diagnosis for this admission?: Yes (3) Pneumonia Qualifiers: Pneumonia type: due to unspecified organism Laterality: right Lung location: unspecified part of lung Qualified Code(s): J18.9 - Pneumonia, unspecified organism Is this a current diagnosis for this admission?: Yes (4) Brain metastases Is this a current diagnosis for this admission?: Yes (5) Cancer of upper lobe of right lung Is this a current diagnosis for this admission?: Yes Plan: Consult oncology Dr. Osorio who familiar with this patient
--- NOTE | 2019-03-11 23:02 | EKG REPORT ---
SEVERITY:- BORDERLINE ECG - SINUS TACHYCARDIA PROBABLE LEFT ATRIAL ABNORMALITY : Confirmed by: Thania Davenport MD 11-Mar-2019 23:02:17
[2019-03-12] MEDS: CEFTRIAXONE 1 GM/D5W RTU 1 GM/50 ML RTUPB IV SCH ×2 (01:11→09:09)
[2019-03-12] MEDS: LEVOFLOXACIN 750 MG/D5W RTU 750 MG/150 ML RTUPB IV SCH ×2 (01:42→09:09)
--- NOTE | 2019-03-12 01:49 | RADIOLOGY REPORT (SQ) ---
EXAM DESCRIPTION: CT CHEST ANGIOGRAPHY WITHOUT THEN WITH IV CONTRAST COMPLETED DATE/TME: 03/11/2019 00:00 CLINICAL HISTORY: 68 years Female, RT PLEURAL EFFUSION ,R/O PE Comparison: 01/02/19. CR, one day prior. Technique: IV contrast. Coronal and sagittal reformat. 3d reconstruction. This exam was performed according to our departmental dose-optimization program, which includes automated exposure control, adjustment of the mA and/or kV according to patient size and/or use of iterative reconstruction technique.[facility]: Dose Right [facility]: CareDose [facility]: Dose Right [facility]: Teradose 4D [facility]: Let LIMITATIONS: None Findings: 10 cm ovoid complex cystic collection of the left lower hemithorax includes small gas bubbles and two metallic fragments-shrapnel measuring up to 1.0 cm each. Moderate right lower lobar and right middle lobar consolidation. Small patchy and nodular scattered opacities of both lung ureña including 2.0 cm lesion of the left lower lobe. Extensive emphysematous appearance of the lungs. Mosaic lung pattern. Small pericardial fluid collection. 2.8 Anne suspicious left adrenal lesion. At least three liver lesions partially imaged measuring up to 1.6 cm each. Dilated gallbladder of 4.1 cm diameter. Moderate mediastinal lymphadenopathy. Atherosclerotic vascular disease. No pulmonary embolus. No right ventricular strain. Degenerative disc disease. Left jugular central line tip at the SVC. Inferior neck, axillae, airway, heart, vasculature, upper abdomen, and musculoskeleton appear otherwise unremarkable. Impression: 1. 10 cm complex cystic collection of the left lower hemithorax may indicate empyema and/or neoplasm. Additional lung lesions, left adrenal mass, and liver lesions with interval worsening suggestive of malignancy/metastases in this patient with history of breast malignancy. Cannot exclude superimposed pneumonia. 2. No pulmonary embolus.
[2019-03-12] MEDS: HYDROCODONE/ACETAMINOPHEN 5-325 MG TABLET PO PRN ×2 (03:42→10:57)
[2019-03-12] MEDS: IPRATROPIUM/ALBUTEROL 0.5-2.5 MG/3 ML AMPUL NEB SCH ×4 (08:36→20:29)
[2019-03-12] MEDS: ONDANSETRON HCL INJ/PF 4 MG/2 ML SDV IV PRN (09:09)
[2019-03-12] MEDS ORDERED: ENOXAPARIN SODIUM INJ 40 MG/0.4 ML DISP.SYRIN SUBCUT SCH (10:00)
--- NOTE | 2019-03-12 11:26 | ADVANCED CARE ---
- Diagnosis (5) Cancer of upper lobe of right lung Diagnosis Current: Yes Resuscitation Status: Do Not Resuscitate Discussion: She wants to be DNR status
--- NOTE | 2019-03-12 12:33 | PDOC CONSULTATION ---
Consultation Consult Date: 03/12/19 Attending physician:: LEONILA OCHOA Provider Consulted: SHERI MOCK Consult reason:: Patient presenting with shortness of breath, worsening dyspnea on exertion, respiratory distress, stage IV lung cancer History of Present Illness Admission Date/PCP: 03/11/19 15:25 LEONILA OCHOA MD Patient complains of: Worsening breathing History of Present Illness: RAMÍREZ LOPEZ is a 68 year old female with known history of stage IV lung cancer recently diagnosed just about 2 months ago, has brain metastasis, and now new liver metastasis, had a primary right lung lesion that was biopsy-proven to be adenocarcinoma, her breathing status has worsened, and ultimately presented with respiratory distress/failure, she was on BiPAP through the night and is doing a little bit better today. CTA of the chest however indicates a large right lower lobe empyema and the location of the original tumor. She did receive brain radiation but unfortunately soon after brain radiation had new brain metastasis that was treated again. Of note on the CT of the chest, the new finding is liver lesions. I had a long discussion with the patient and family, initially I was considering transfer to [place] because of the complicated empyema and the possible need for chest tube placement and thoracic surgery evaluation, but after further discussion with the patient she wants to be comfortable now. She is DNR as well. Past Medical History Cardiac Medical History: Denies: Coronary Artery Disease, Myocardial Infarction, Hypertension Pulmonary Medical History: Denies: Asthma, Bronchitis, Chronic Obstructive Pulmonary Disease (COPD), Pneumonia Neurological Medical History: Denies: Seizures Malignancy Medical History: Reports: Brain Cancer, Breast Cancer, Lung Cancer Musculoskeltal Medical History: Denies: Arthritis Psychiatric Medical History: Reports: Bipolar Disorder, Depression Hematology: Denies: Anemia Past Surgical History Past Surgical History: Reports: Other - Breast surgery, chest tube placement Denies: Hysterectomy, Pacemaker Social History Information Source: Patient Smoking Status: Former Smoker Frequency of Alcohol Use: None Hx Recreational Drug Use: No Drugs: None Hx Prescription Drug Abuse: No - Advance Directive Resuscitation Status: Do Not Resuscitate Family History Family History: Reviewed & Not Pertinent Parental Family History Reviewed: Yes Children Family History Reviewed: Yes Sibling(s) Family History Reviewed.: Yes Medication/Allergy Home Medications: Letrozole [Femara 2.5 mg Tablet] 2.5 mg PO DAILY 01/23/19 Ondansetron HCl [Zofran 8 mg Tablet] 8 mg PO Q8HP PRN 01/23/19 Paroxetine HCl [Paxil] 40 mg PO QHS 01/23/19 Prochlorperazine Maleate [Compazine 10 mg Tablet] 10 mg PO Q6HP PRN 01/23/19 Quetiapine Fumarate [Seroquel 100 mg Tablet] 100 mg PO BID@0600,1400 01/23/19 Denosumab [Prolia 60 mg/ml Syr 1 ml] 60 mg INJ ASDIR PRN 03/11/19 Dronabinol [Marinol 2.5 mg Capsule] 2.5 mg PO BID 03/11/19 Hydrocodone Bit/Acetaminophen [Hydrocodon-Acetaminophen 5-325] 1 each PO Q6HP PRN 03/11/19 Lorazepam [Ativan 1 mg Tablet] 1 mg PO BIDP PRN MDD 3 mg 03/11/19 Quetiapine Fumarate [Seroquel 100 mg Tablet] 200 mg PO QHS 03/11/19 Trazodone HCl [Desyrel 50 mg Tablet] 50 mg PO QHS 03/11/19 Allergies/Adverse Reactions: No Known Allergies Allergy (Verified 01/22/19 13:31) Review of Systems Constitutional: PRESENT: anorexia, fatigue, weakness, weight loss Cardiovascular: PRESENT: dyspnea on exertion, orthropnea Gastrointestinal: PRESENT: nausea Musculoskeletal: PRESENT: back pain Neurological: PRESENT: weakness Psychiatric: PRESENT: anxiety Physical Exam Vital Signs: Temp Pulse Resp BP Pulse Ox 97.5 F 99 14 101/52 L 97 03/12/19 11:16 03/12/19 12:06 03/12/19 12:06 03/12/19 11:16 03/12/19 12:06 Intake & Output 03/11/19 03/12/19 03/13/19 06:59 06:59 06:59 Intake Total 200 200 Output Total 0 Balance 200 200 Weight 55.2 kg General appearance: PRESENT: no acute distress, well-developed, well-nourished Head exam: PRESENT: atraumatic, normocephalic Eye exam: PRESENT: conjunctiva pink, EOMI, PERRLA. ABSENT: scleral icterus Ear exam: PRESENT: normal external ear exam Mouth exam: PRESENT: moist, tongue midline Neck exam: ABSENT: carotid bruit, JVD, lymphadenopathy, thyromegaly Respiratory exam: PRESENT: clear to auscultation kevin. ABSENT: rales, rhonchi, wheezes Cardiovascular exam: PRESENT: RRR. ABSENT: diastolic murmur, rubs, systolic murmur Pulses: PRESENT: normal dorsalis pedis pul Vascular exam: PRESENT: normal capillary refill GI/Abdominal exam: PRESENT: normal bowel sounds, soft. ABSENT: distended, guarding, mass, organolmegaly, rebound, tenderness Rectal exam: PRESENT: deferred Extremities exam: PRESENT: full ROM. ABSENT: calf tenderness, clubbing, pedal edema Neurological exam: PRESENT: alert, awake, oriented to person, oriented to place, oriented to time, oriented to situation, CN II-XII grossly intact. ABSENT: motor sensory deficit Psychiatric exam: PRESENT: appropriate affect, normal mood. ABSENT: homicidal ideation, suicidal ideation Skin exam: PRESENT: dry, intact, warm. ABSENT: cyanosis, rash Results Laboratory Results: 03/11/19 03/11/19 03/11/19 12:26 12:26 12:26 WBC 25.1 H RBC 2.38 L Hgb 7.0 L Hct 21.4 L MCV 90 MCH 29.6 MCHC 32.8 RDW 17.4 H Plt Count 814 H Seg Neutrophils % Not Reportable Carbonic Acid 1.19 HCO3/H2CO3 Ratio 24:1 ABG pH 7.48 H ABG pCO2 39.5 ABG pO2 151.6 H ABG HCO3 28.8 H ABG O2 Saturation 99.1 H ABG Base Excess 4.9 FiO2 15L Sodium 132.2 L Potassium 4.5 Chloride 94 L Carbon Dioxide 28 Anion Gap 10 BUN 14 Creatinine 0.63 Est GFR ( Amer) > 60 Glucose 89 Lactic Acid Calcium 8.0 L Total Bilirubin 0.5 AST 36 Alkaline Phosphatase 179 H Total Protein 5.5 L Albumin 2.5 L Blood Type Antibody Screen 03/11/19 03/11/19 13:11 13:11 WBC RBC Hgb Hct MCV MCH MCHC RDW Plt Count Seg Neutrophils % Carbonic Acid HCO3/H2CO3 Ratio ABG pH ABG pCO2 ABG pO2 ABG HCO3 ABG O2 Saturation ABG Base Excess FiO2 Sodium Potassium Chloride Carbon Dioxide Anion Gap BUN Creatinine Est GFR ( Amer) Glucose Lactic Acid 1.4 Calcium Total Bilirubin AST Alkaline Phosphatase Total Protein Albumin Blood Type O POSITIVE Antibody Screen NEGATIVE 03/11/19 03/11/19 03/11/19 12:26 12:26 12:26 Creatine Kinase 21 L CK-MB (CK-2) 0.31 Troponin I 0.019 NT-Pro-B Natriuret Pep 2550 H Impressions: Chest X-Ray 03/11/19 00:00 IMPRESSION: Cardiomegaly without staci pulmonary edema. Possible right pleural effusion. Cannot exclude airspace disease in the right lower lobe. Status: Image reviewed by me Assessment & Plan - Diagnosis (1) Cancer of upper lobe of right lung Is this a current diagnosis for this admission?: Yes Plan: Patient with right lung cancer with brain metastasis now liver metastasis, unfortunately patient is worsening and has decided on comfort care measures. To that extent we will initiate morphine, Ativan, I have consulted Shama from community hospice to come see her and counseled them on consideration of home hospice with comfort care. She agrees to DNR. She agrees to comfort care measures. We have placed those orders. - Time Time Spent: Greater than 70 Minutes Anticipated discharge: Hospice Within: within 72 hours - Inpatient Certification Based on my medical assessment, after consideration of the patient's comorbidities, presenting symptoms, or acuity I expect that the services needed warrant INPATIENT care.: Yes I certify that my determination is in accordance with my understanding of Medicare's requirements for reasonable and necessary INPATIENT services [42 CFR 412.3e].: Yes Medical Necessity: Need for Nebulizer Therapy and Monitoring of Response, Need for Pain Control, Risk of Complication if Not Cared For in Hospital
--- NOTE | 2019-03-12 12:34 | ADVANCED CARE ---
- Diagnosis (1) Cancer of upper lobe of right lung Diagnosis Current: Yes Attendance: Patient, family at bedside Resuscitation Status: Do Not Resuscitate Discussion: Discussed with patient, she would like to be comfort care measures, DNR Care Planning Goals: Inpatient comfort care measures for now, have [facility] to see patient and talk to them about home hospice, she will call them and make an appointment to see them either today or tomorrow Document(s) Completed: DNR documents signed Time Spent: Greater than 60 minutes
[2019-03-12] MEDS: LORAZEPAM INJ 2 MG/1 ML VIAL IV PRN ×2 (12:35→16:16)
[2019-03-12] MEDS: LORAZEPAM INJ 2 MG/1 ML VIAL ONE ×2 (12:40→13:47)
[2019-03-12 12:46] LABS: BLOOD UREA NITROGEN 9 mg/dL (7-20); CALCIUM 7.4 mg/dL (8.4-10.2); GLUCOSE 82 mg/dL (75-110)
[2019-03-12] MEDS ORDERED: PROMETHAZINE HCL INJ 25 MG/1 ML VIAL IV PRN (12:46)
[2019-03-12 12:47] LABS: ALBUMIN 2.3 g/dL (3.5-5.0); ALKALINE PHOSPHATASE 172 U/L (38-126); ANION GAP 10 (5-19); ASPARTATE AMINO TRANSFERASE 28 U/L (14-36); BILIRUBIN,DIRECT 0.1 mg/dL (0.0-0.4); BILIRUBIN,TOTAL 0.1 mg/dL (0.2-1.3); CARBON DIOXIDE 26 mmol/L (22-30); CHLORIDE 100 mmol/L (98-107); POTASSIUM 4.2 mmol/L (3.6-5.0); TOTAL PROTEIN 5.1 g/dL (6.3-8.2)
[2019-03-12 12:51] LABS: HEMATOCRIT 20.5 % (36.0-47.0); MEAN CORPUSCULAR HEMOGLOBIN 29.2 pg (27.0-33.4); MEAN CORPUSCULAR HGB CONC 32.2 g/dL (32.0-36.0); MEAN CORPUSCULAR VOLUME 91 fl (80-97); PLATELET COUNT 756 10^3/uL (150-450); RED BLOOD COUNT 2.26 10^6/uL (3.72-5.28); WHITE BLOOD COUNT 24.7 10^3/uL (4.0-10.5)
[2019-03-12 12:55] LABS: HEMOGLOBIN 6.6 g/dL (12.0-15.5)
[2019-03-12 13:16] LABS: ABSOLUTE MONOCYTES # (MANUAL) 1.5 10^3/uL (0.1-1.4); ANISOCYTOSIS 1+; BAND NEUTROPHILS % (MANUAL) 2 % (3-5); BASOPHILS % (MANUAL) 0 % (0-2); EOSINOPHILS % (MANUAL) 0 % (0-6); LYMPHOCYTES % (MANUAL) 4 % (13-45); MONOCYTES % (MANUAL) 6 % (3-13); PLATELET COMMENT INCREASED; POLYCHROMASIA SLIGHT; SEGMENTED NEUTROPHILS % (MAN) 88 % (42-78); TOTAL CELLS COUNTED 100; TOXIC GRANULATION 2+
[2019-03-12] MEDS: MORPHINE SULFATE 10 MG/ML INJ IV PRN ×3 (14:06→23:51)
--- NOTE | 2019-03-12 15:16 | PDOC PROGRESS REPORT ---
Subjective Progress Note for:: 03/12/19 Subjective:: Patient seen by the bedside, condition remains poor consultation obtained from the treating oncologist, after consultation with family members, it was decided to make her comfort care Reason For Visit: RT PLUERAL EFFUSION, ? PE H/O LUNG CANCER Physical Exam Vital Signs: Temp Pulse Resp BP Pulse Ox 97.5 F 99 14 101/52 L 97 03/12/19 11:16 03/12/19 12:06 03/12/19 12:06 03/12/19 11:16 03/12/19 12:06 Intake & Output 03/11/19 03/12/19 03/13/19 06:59 06:59 06:59 Intake Total 200 1458 Output Total 0 Balance 200 1458 Weight 55.2 kg General appearance: PRESENT: mild distress Eye exam: PRESENT: PERRLA Respiratory exam: PRESENT: rhonchi Cardiovascular exam: PRESENT: +S1, +S2 GI/Abdominal exam: PRESENT: soft Results Laboratory Results: 03/12/19 12:17 03/12/19 12:17 03/12/19 03/12/19 12:17 12:17 WBC 24.7 H RBC 2.26 L Hgb 6.6 L Hct 20.5 L MCV 91 MCH 29.2 MCHC 32.2 RDW 17.0 H Plt Count 756 H Seg Neutrophils % Not Reportable Sodium 135.8 L Potassium 4.2 Chloride 100 Carbon Dioxide 26 Anion Gap 10 BUN 9 Creatinine 0.76 Est GFR ( Amer) > 60 Glucose 82 Calcium 7.4 L Total Bilirubin 0.1 L AST 28 Alkaline Phosphatase 172 H Total Protein 5.1 L Albumin 2.3 L 03/11/19 03/11/19 03/11/19 12:26 12:26 12:26 Creatine Kinase 21 L CK-MB (CK-2) 0.31 Troponin I 0.019 NT-Pro-B Natriuret Pep 2550 H Impressions: Chest X-Ray 03/11/19 00:00 IMPRESSION: Cardiomegaly without staci pulmonary edema. Possible right pleural effusion. Cannot exclude airspace disease in the right lower lobe. Assessment & Plan - Diagnosis (1) Lung abscess Qualifiers: Pulmonary abscess pneumonia presence: with pneumonia Laterality: left Lung location: lower lobe of lung Qualified Code(s): J85.1 - Abscess of lung with pneumonia Is this a current diagnosis for this admission?: Yes (2) Breast cancer Qualifiers: Breast location: unspecified site of breast Estrogen receptor status: unspecified Patient sex: female Laterality: right Qualified Code(s): C50.911 - Malignant neoplasm of unspecified site of right female breast Is this a current diagnosis for this admission?: Yes (3) Pneumonia Qualifiers: Pneumonia type: due to unspecified organism Laterality: right Lung location: unspecified part of lung Qualified Code(s): J18.9 - Pneumonia, unspecified organism Is this a current diagnosis for this admission?: Yes (4) Brain metastases Is this a current diagnosis for this admission?: Yes (5) Cancer of upper lobe of right lung Is this a current diagnosis for this admission?: Yes - Plan Summary Plan Summary: Patient with metastatic disease, care transition to comfort
[2019-03-12] MEDS: DOCUSATE SODIUM 100 MG CAPSULE PO SCH (16:35)
[2019-03-12] MEDS ORDERED: PROCHLORPERAZINE MALEATE 10 MG TABLET PO PRN (19:34)
[2019-03-12] MEDS: PAROXETINE HCL 20 MG TABLET PO SCH (21:14)
[2019-03-12] MEDS: QUETIAPINE FUMARATE 100 MG TABLET PO SCH (21:15)
[2019-03-12] MEDS: TRAZODONE HCL 50 MG TABLET PO SCH (21:15)
[2019-03-12] MEDS: POTASSI CL 20 MEQ/D5-1/2NS 1L 1,000 ML IV PRN (21:21)
[2019-03-13 04:47] LABS: HEMATOCRIT 19.7 % (36.0-47.0); MEAN CORPUSCULAR HEMOGLOBIN 29.4 pg (27.0-33.4); MEAN CORPUSCULAR HGB CONC 32.5 g/dL (32.0-36.0); MEAN CORPUSCULAR VOLUME 91 fl (80-97); PLATELET COUNT 667 10^3/uL (150-450); RED BLOOD COUNT 2.17 10^6/uL (3.72-5.28); RED CELL DISTRIBUTION WIDTH 17.3 % (11.5-14.0); WHITE BLOOD COUNT 26.1 10^3/uL (4.0-10.5)
[2019-03-13 04:51] LABS: HEMOGLOBIN 6.4 g/dL (12.0-15.5)
[2019-03-13 04:56] LABS: ALBUMIN 2.2 g/dL (3.5-5.0); ALKALINE PHOSPHATASE 151 U/L (38-126); ANION GAP 7 (5-19); ASPARTATE AMINO TRANSFERASE 18 U/L (14-36); BILIRUBIN,DIRECT 0.1 mg/dL (0.0-0.4); BILIRUBIN,TOTAL 0.3 mg/dL (0.2-1.3); BLOOD UREA NITROGEN 5 mg/dL (7-20); CALCIUM 7.3 mg/dL (8.4-10.2); CARBON DIOXIDE 27 mmol/L (22-30); CHLORIDE 102 mmol/L (98-107); GLUCOSE 106 mg/dL (75-110); POTASSIUM 4.5 mmol/L (3.6-5.0); TOTAL PROTEIN 5.1 g/dL (6.3-8.2)
[2019-03-13 05:49] LABS: ABSOLUTE MONOCYTES # (MANUAL) 1.3 10^3/uL (0.1-1.4); BAND NEUTROPHILS % (MANUAL) 6 % (3-5); BASOPHILS % (MANUAL) 0 % (0-2); EOSINOPHILS % (MANUAL) 0 % (0-6); LYMPHOCYTES % (MANUAL) 4 % (13-45); MONOCYTES % (MANUAL) 5 % (3-13); NUCLEATED RED BLOOD CELLS 2 /100 WBC (0); SEGMENTED NEUTROPHILS % (MAN) 85 % (42-78); TOTAL CELLS COUNTED 100
[2019-03-13 05:50] LABS: ANISOCYTOSIS 1+; HYPOCHROMASIA 2+; PLATELET COMMENT INCREASED
[2019-03-13] MEDS: MORPHINE SULFATE 10 MG/ML INJ IV PRN ×5 (06:43→21:10)
[2019-03-13] MEDS: QUETIAPINE FUMARATE 100 MG TABLET PO SCH ×3 (06:44→22:05)
[2019-03-13] MEDS: LORAZEPAM INJ 2 MG/1 ML VIAL IV PRN ×3 (08:50→14:26)
[2019-03-13] MEDS: IPRATROPIUM/ALBUTEROL 0.5-2.5 MG/3 ML AMPUL NEB SCH ×4 (08:57→20:14)
[2019-03-13] MEDS: DOCUSATE SODIUM 100 MG CAPSULE PO SCH ×2 (10:02→19:46)
[2019-03-13] MEDS: CEFTRIAXONE 1 GM/D5W RTU 1 GM/50 ML RTUPB IV SCH (10:03)
[2019-03-13] MEDS: DRONABINOL 2.5 MG CAPSULE PO SCH ×2 (10:03→19:46)
[2019-03-13] MEDS: LEVOFLOXACIN 750 MG/D5W RTU 750 MG/150 ML RTUPB IV SCH (10:04)
--- NOTE | 2019-03-13 10:26 | PDOC PROGRESS REPORT ---
Subjective Progress Note for:: 03/13/19 Subjective:: Pt still w/ pain this am, so I increased morphine and ativan. Hospice called family yesterday, they were not ready to talk but encouraged them to speak w/ them today Reason For Visit: RT PLUERAL EFFUSION, ? PE H/O LUNG CANCER Physical Exam Vital Signs: Temp Pulse Resp BP Pulse Ox 97.4 F 105 H 20 115/62 95 03/12/19 19:32 03/13/19 08:58 03/13/19 08:58 03/12/19 19:32 03/13/19 08:58 Intake & Output 03/12/19 03/13/19 03/14/19 06:59 06:59 06:59 Intake Total 200 1560 Output Total 0 Balance 200 1560 Weight 55.2 kg 54.8 kg General appearance: PRESENT: no acute distress, well-developed, well-nourished Head exam: PRESENT: atraumatic, normocephalic Eye exam: PRESENT: conjunctiva pink, EOMI, PERRLA. ABSENT: scleral icterus Ear exam: PRESENT: normal external ear exam Mouth exam: PRESENT: moist, tongue midline Neck exam: ABSENT: carotid bruit, JVD, lymphadenopathy, thyromegaly Respiratory exam: PRESENT: clear to auscultation kevin. ABSENT: rales, rhonchi, wheezes Cardiovascular exam: PRESENT: RRR. ABSENT: diastolic murmur, rubs, systolic murmur Pulses: PRESENT: normal dorsalis pedis pul Vascular exam: PRESENT: normal capillary refill GI/Abdominal exam: PRESENT: normal bowel sounds, soft. ABSENT: distended, guarding, mass, organolmegaly, rebound, tenderness Rectal exam: PRESENT: deferred Extremities exam: PRESENT: full ROM. ABSENT: calf tenderness, clubbing, pedal edema Neurological exam: PRESENT: alert, awake, oriented to person, oriented to place, oriented to time, oriented to situation, CN II-XII grossly intact. ABSENT: motor sensory deficit Psychiatric exam: PRESENT: appropriate affect, normal mood. ABSENT: homicidal ideation, suicidal ideation Skin exam: PRESENT: dry, intact, warm. ABSENT: cyanosis, rash Results Laboratory Results: 03/13/19 04:24 03/13/19 04:24 03/12/19 03/12/19 03/13/19 12:17 12:17 04:24 WBC 24.7 H 26.1 H RBC 2.26 L 2.17 L Hgb 6.6 L 6.4 L Hct 20.5 L 19.7 L MCV 91 91 MCH 29.2 29.4 MCHC 32.2 32.5 RDW 17.0 H 17.3 H Plt Count 756 H 667 H Seg Neutrophils % Not Reportable Not Reportable Sodium 135.8 L Potassium 4.2 Chloride 100 Carbon Dioxide 26 Anion Gap 10 BUN 9 Creatinine 0.76 Est GFR ( Amer) > 60 Glucose 82 Calcium 7.4 L Total Bilirubin 0.1 L AST 28 Alkaline Phosphatase 172 H Total Protein 5.1 L Albumin 2.3 L 03/13/19 04:24 WBC RBC Hgb Hct MCV MCH MCHC RDW Plt Count Seg Neutrophils % Sodium 135.5 L Potassium 4.5 Chloride 102 Carbon Dioxide 27 Anion Gap 7 BUN 5 L Creatinine 0.72 Est GFR ( Amer) > 60 Glucose 106 Calcium 7.3 L Total Bilirubin 0.3 AST 18 Alkaline Phosphatase 151 H Total Protein 5.1 L Albumin 2.2 L 03/11/19 03/11/19 03/11/19 12:26 12:26 12:26 Creatine Kinase 21 L CK-MB (CK-2) 0.31 Troponin I 0.019 NT-Pro-B Natriuret Pep 2550 H Impressions: Chest X-Ray 03/11/19 00:00 IMPRESSION: Cardiomegaly without staci pulmonary edema. Possible right pleural effusion. Cannot exclude airspace disease in the right lower lobe. Assessment & Plan - Diagnosis (1) Cancer of upper lobe of right lung Is this a current diagnosis for this admission?: Yes Plan: Con't comfort care, atbx and fluids for now, if stable by tomorrow and family meets w/ hospice, could potentially d/c w/ home hospice.
[2019-03-13] MEDS: POTASSI CL 20 MEQ/D5-1/2NS 1L 1,000 ML IV PRN (12:43)
--- NOTE | 2019-03-13 16:19 | PDOC PROGRESS REPORT ---
Subjective Progress Note for:: 03/13/19 Subjective:: Patient seen by the bedside, she is comfortable, presently comfort care, hopefully discharge home tomorrow with hospice. She was seen by oncology, morphine dose adjusted. She has metastatic disease, with brain metastasis, lung cancer Reason For Visit: RT PLUERAL EFFUSION, ? PE H/O LUNG CANCER Physical Exam Vital Signs: Temp Pulse Resp BP Pulse Ox 97.4 F 108 H 36 H 115/62 94 03/12/19 19:32 03/13/19 16:05 03/13/19 16:05 03/12/19 19:32 03/13/19 16:05 Intake & Output 03/12/19 03/13/19 03/14/19 06:59 06:59 06:59 Intake Total 200 1560 1200 Output Total 0 Balance 200 1560 1200 Weight 55.2 kg 54.8 kg General appearance: PRESENT: no acute distress Eye exam: PRESENT: PERRLA Respiratory exam: PRESENT: clear to auscultation kevin Cardiovascular exam: PRESENT: +S1, +S2 GI/Abdominal exam: PRESENT: soft Neurological exam: PRESENT: alert Results Laboratory Results: 03/13/19 04:24 03/13/19 04:24 03/13/19 03/13/19 04:24 04:24 WBC 26.1 H RBC 2.17 L Hgb 6.4 L Hct 19.7 L MCV 91 MCH 29.4 MCHC 32.5 RDW 17.3 H Plt Count 667 H Seg Neutrophils % Not Reportable Sodium 135.5 L Potassium 4.5 Chloride 102 Carbon Dioxide 27 Anion Gap 7 BUN 5 L Creatinine 0.72 Est GFR ( Amer) > 60 Glucose 106 Calcium 7.3 L Total Bilirubin 0.3 AST 18 Alkaline Phosphatase 151 H Total Protein 5.1 L Albumin 2.2 L 03/11/19 03/11/19 03/11/19 12:26 12:26 12:26 Creatine Kinase 21 L CK-MB (CK-2) 0.31 Troponin I 0.019 NT-Pro-B Natriuret Pep 2550 H Impressions: Chest X-Ray 03/11/19 00:00 IMPRESSION: Cardiomegaly without staci pulmonary edema. Possible right pleural effusion. Cannot exclude airspace disease in the right lower lobe. Assessment & Plan - Diagnosis (1) Lung abscess Qualifiers: Pulmonary abscess pneumonia presence: with pneumonia Laterality: left Lung location: lower lobe of lung Qualified Code(s): J85.1 - Abscess of lung with pneumonia Is this a current diagnosis for this admission?: Yes (2) Breast cancer Qualifiers: Breast location: unspecified site of breast Estrogen receptor status: unspecified Patient sex: female Laterality: right Qualified Code(s): C50.911 - Malignant neoplasm of unspecified site of right female breast Is this a current diagnosis for this admission?: Yes (3) Pneumonia Qualifiers: Pneumonia type: due to unspecified organism Laterality: right Lung location: unspecified part of lung Qualified Code(s): J18.9 - Pneumonia, unspecified organism Is this a current diagnosis for this admission?: Yes (4) Brain metastases Is this a current diagnosis for this admission?: Yes (5) Cancer of upper lobe of right lung Is this a current diagnosis for this admission?: Yes
[2019-03-13] MEDS: PAROXETINE HCL 20 MG TABLET PO SCH (22:05)
[2019-03-13] MEDS: TRAZODONE HCL 50 MG TABLET PO SCH (22:05)
[2019-03-14] MEDS: MORPHINE SULFATE 10 MG/ML INJ IV PRN ×7 (00:05→23:46)
[2019-03-14] MEDS: POTASSI CL 20 MEQ/D5-1/2NS 1L 1,000 ML IV PRN ×2 (03:47→22:22)
[2019-03-14] MEDS: QUETIAPINE FUMARATE 100 MG TABLET PO SCH ×3 (06:31→21:59)
--- NOTE | 2019-03-14 08:21 | PDOC PROGRESS REPORT ---
Subjective Progress Note for:: 03/14/19 Subjective:: Pt more comfortable with inc morphine and ativan, spoke w/ daughter who was at bedside, she will be contacting [facility] today for setting up home hospice Reason For Visit: RT PLUERAL EFFUSION, ? PE H/O LUNG CANCER Physical Exam Vital Signs: Temp Pulse Resp BP Pulse Ox 99.6 F 117 H 22 H 102/42 L 86 L 03/13/19 20:45 03/13/19 20:45 03/13/19 20:45 03/13/19 20:45 03/13/19 20:45 Intake & Output 03/13/19 03/14/19 03/15/19 06:59 06:59 06:59 Intake Total 1560 2560 Output Total 2 Balance 1560 2558 Weight 54.8 kg 54 kg General appearance: PRESENT: no acute distress, well-developed, well-nourished Head exam: PRESENT: atraumatic, normocephalic Eye exam: PRESENT: conjunctiva pink, EOMI, PERRLA. ABSENT: scleral icterus Ear exam: PRESENT: normal external ear exam Mouth exam: PRESENT: moist, tongue midline Neck exam: ABSENT: carotid bruit, JVD, lymphadenopathy, thyromegaly Respiratory exam: PRESENT: clear to auscultation kevin. ABSENT: rales, rhonchi, wheezes Cardiovascular exam: PRESENT: RRR. ABSENT: diastolic murmur, rubs, systolic murmur Pulses: PRESENT: normal dorsalis pedis pul Vascular exam: PRESENT: normal capillary refill GI/Abdominal exam: PRESENT: normal bowel sounds, soft. ABSENT: distended, guarding, mass, organolmegaly, rebound, tenderness Rectal exam: PRESENT: deferred Extremities exam: PRESENT: full ROM. ABSENT: calf tenderness, clubbing, pedal edema Neurological exam: PRESENT: alert, awake, oriented to person, oriented to place, oriented to time, oriented to situation, CN II-XII grossly intact. ABSENT: motor sensory deficit Psychiatric exam: PRESENT: appropriate affect, normal mood. ABSENT: homicidal ideation, suicidal ideation Skin exam: PRESENT: dry, intact, warm. ABSENT: cyanosis, rash Results Laboratory Results: 03/13/19 04:24 03/13/19 04:24 03/11/19 03/11/19 03/11/19 12:26 12:26 12:26 Creatine Kinase 21 L CK-MB (CK-2) 0.31 Troponin I 0.019 NT-Pro-B Natriuret Pep 2550 H Impressions: Chest X-Ray 03/11/19 00:00 IMPRESSION: Cardiomegaly without staci pulmonary edema. Possible right pleural effusion. Cannot exclude airspace disease in the right lower lobe. Assessment & Plan - Diagnosis (1) Cancer of upper lobe of right lung Is this a current diagnosis for this admission?: Yes Plan: Con't inpt comfort measures until oupt home hospice arrangements complete, daughter [facility]
[2019-03-14] MEDS: IPRATROPIUM/ALBUTEROL 0.5-2.5 MG/3 ML AMPUL NEB SCH ×5 (08:53→20:27)
[2019-03-14] MEDS: DRONABINOL 2.5 MG CAPSULE PO SCH ×2 (09:49→18:05)
[2019-03-14] MEDS: DOCUSATE SODIUM 100 MG CAPSULE PO SCH ×2 (09:50→18:05)
[2019-03-14] MEDS: LEVOFLOXACIN 750 MG/D5W RTU 750 MG/150 ML RTUPB IV SCH (09:50)
[2019-03-14] MEDS: CEFTRIAXONE 1 GM/D5W RTU 1 GM/50 ML RTUPB IV SCH (09:50)
--- NOTE | 2019-03-14 10:41 | PDOC PROGRESS REPORT ---
Subjective Progress Note for:: 03/14/19 Subjective:: Patient was admitted for the respiratory distress pneumonia lung cancer with metastatic disease in the brain patient is currently on a comfort care lying in the bed Reason For Visit: RT PLUERAL EFFUSION, ? PE H/O LUNG CANCER Physical Exam Vital Signs: Temp Pulse Resp BP Pulse Ox 99.6 F 103 H 26 H 102/42 L 88 L 03/13/19 20:45 03/14/19 08:53 03/14/19 08:53 03/13/19 20:45 03/14/19 08:53 Intake & Output 03/13/19 03/14/19 03/15/19 06:59 06:59 06:59 Intake Total 1560 2560 Output Total 2 Balance 1560 2558 Weight 54.8 kg 54 kg General appearance: PRESENT: no acute distress Head exam: PRESENT: atraumatic, normocephalic Eye exam: PRESENT: conjunctiva pink, EOMI, PERRLA. ABSENT: scleral icterus Ear exam: PRESENT: normal external ear exam Mouth exam: PRESENT: moist, tongue midline Neck exam: PRESENT: full ROM. ABSENT: carotid bruit, JVD, lymphadenopathy, thyromegaly Respiratory exam: PRESENT: decreased breath sounds Cardiovascular exam: PRESENT: RRR. ABSENT: diastolic murmur, rubs, systolic murmur Vascular exam: PRESENT: normal capillary refill GI/Abdominal exam: PRESENT: normal bowel sounds, soft. ABSENT: distended, guarding, mass, organolmegaly, rebound, tenderness Rectal exam: PRESENT: deferred Neurological exam: PRESENT: alert, awake. ABSENT: motor sensory deficit Psychiatric exam: PRESENT: appropriate affect, normal mood. ABSENT: homicidal ideation, suicidal ideation Skin exam: PRESENT: dry, intact, warm. ABSENT: cyanosis, rash Results Laboratory Results: 03/13/19 04:24 03/13/19 04:24 03/11/19 03/11/19 03/11/19 12:26 12:26 12:26 Creatine Kinase 21 L CK-MB (CK-2) 0.31 Troponin I 0.019 NT-Pro-B Natriuret Pep 2550 H Impressions: Chest X-Ray 03/11/19 00:00 IMPRESSION: Cardiomegaly without staci pulmonary edema. Possible right pleural effusion. Cannot exclude airspace disease in the right lower lobe. Assessment & Plan - Diagnosis (1) Lung abscess Qualifiers: Pulmonary abscess pneumonia presence: with pneumonia Laterality: left Lung location: lower lobe of lung Qualified Code(s): J85.1 - Abscess of lung with pneumonia Is this a current diagnosis for this admission?: Yes (2) Pneumonia Qualifiers: Pneumonia type: due to unspecified organism Laterality: right Lung loc ation: unspecified part of lung Qualified Code(s): J18.9 - Pneumonia, unspecified organism Is this a current diagnosis for this admission?: Yes (3) Brain metastases Is this a current diagnosis for this admission?: Yes (4) Cancer of upper lobe of right lung Is this a current diagnosis for this admission?: Yes - Time Time Spent with patient: 25-34 minutes Medications reviewed and adjusted accordingly: Yes Anticipated discharge: Hospice Within: within 24 hours - Plan Summary Plan Summary: Discussed with the patient's daughter and the bedside myself and oncology and patient's family wants to go home with the home hospice
[2019-03-14] MEDS: LORAZEPAM INJ 2 MG/1 ML VIAL IV PRN (15:40)
[2019-03-14] MEDS: PAROXETINE HCL 20 MG TABLET PO SCH (21:59)
[2019-03-14] MEDS: TRAZODONE HCL 50 MG TABLET PO SCH (21:59)
[2019-03-15 03:29] VITALS: BP 98/53
[2019-03-15] MEDS: MORPHINE SULFATE 10 MG/ML INJ IV PRN ×5 (04:04→14:58)
[2019-03-15] MEDS: QUETIAPINE FUMARATE 100 MG TABLET PO SCH ×2 (06:39→13:17)
[2019-03-15] MEDS: IPRATROPIUM/ALBUTEROL 0.5-2.5 MG/3 ML AMPUL NEB SCH ×3 (07:49→16:23)
--- NOTE | 2019-03-15 08:10 | PDOC PROGRESS REPORT ---
Subjective Progress Note for:: 03/15/19 Subjective:: No acute events overnight, pt ready for d/c home w/ hospice today Reason For Visit: RT PLUERAL EFFUSION, ? PE H/O LUNG CANCER Physical Exam Vital Signs: Temp Pulse Resp BP Pulse Ox 98.7 F 105 H 32 H 98/53 L 92 03/15/19 03:19 03/15/19 07:52 03/15/19 07:52 03/15/19 03:19 03/15/19 07:52 Intake & Output 03/14/19 03/15/19 03/16/19 06:59 06:59 06:59 Intake Total 2560 1200 Output Total 2 Balance 2558 1200 Weight 54 kg 53.2 kg General appearance: PRESENT: no acute distress, well-developed, well-nourished Head exam: PRESENT: atraumatic, normocephalic Eye exam: PRESENT: conjunctiva pink, EOMI, PERRLA. ABSENT: scleral icterus Ear exam: PRESENT: normal external ear exam Mouth exam: PRESENT: moist, tongue midline Neck exam: ABSENT: carotid bruit, JVD, lymphadenopathy, thyromegaly Respiratory exam: PRESENT: clear to auscultation kevin. ABSENT: rales, rhonchi, wheezes Cardiovascular exam: PRESENT: RRR. ABSENT: diastolic murmur, rubs, systolic murmur Pulses: PRESENT: normal dorsalis pedis pul Vascular exam: PRESENT: normal capillary refill GI/Abdominal exam: PRESENT: normal bowel sounds, soft. ABSENT: distended, guarding, mass, organolmegaly, rebound, tenderness Rectal exam: PRESENT: deferred Extremities exam: PRESENT: full ROM. ABSENT: calf tenderness, clubbing, pedal edema Neurological exam: PRESENT: alert, awake, oriented to person, oriented to place, oriented to time, oriented to situation, CN II-XII grossly intact. ABSENT: motor sensory deficit Psychiatric exam: PRESENT: appropriate affect, normal mood. ABSENT: homicidal ideation, suicidal ideation Skin exam: PRESENT: dry, intact, warm. ABSENT: cyanosis, rash Results Laboratory Results: 03/13/19 04:24 03/13/19 04:24 03/11/19 03/11/19 03/11/19 12:26 12:26 12:26 Creatine Kinase 21 L CK-MB (CK-2) 0.31 Troponin I 0.019 NT-Pro-B Natriuret Pep 2550 H Impressions: Chest X-Ray 03/11/19 00:00 IMPRESSION: Cardiomegaly without staci pulmonary edema. Possible right pleural effusion. Cannot exclude airspace disease in the right lower lobe. Assessment & Plan - Diagnosis (1) Cancer of upper lobe of right lung Is this a current diagnosis for this admission?: Yes Plan: D/c w/ home hospice, had long discussion w/ pt and family today, coordination of care w/ community hospice today
[2019-03-15] MEDS: CEFTRIAXONE 1 GM/D5W RTU 1 GM/50 ML RTUPB IV SCH (09:14)
[2019-03-15] MEDS: DOCUSATE SODIUM 100 MG CAPSULE PO SCH (09:20)
[2019-03-15] MEDS: DRONABINOL 2.5 MG CAPSULE PO SCH (09:20)
[2019-03-15] MEDS ORDERED: LEVOFLOXACIN 750 MG TABLET PO SCH (10:00)
--- NOTE | 2019-03-15 12:28 | PDOC DISCHARGE SUMMARY ---
General - Admit/Disc Date/PCP Admission Date/Primary Care Provider: 03/11/19 15:25 LEONILA OCHOA MD Discharge Date: 03/15/19 - Discharge Diagnosis (1) Lung abscess Is this a current diagnosis for this admission?: Yes (2) Pneumonia Is this a current diagnosis for this admission?: Yes (3) Brain metastases Is this a current diagnosis for this admission?: Yes (4) Cancer of upper lobe of right lung Is this a current diagnosis for this admission?: Yes - Additional Information Resuscitation Status: Do Not Resuscitate Discharge Diet: Regular Home Medications: Letrozole [Femara 2.5 mg Tablet] 2.5 mg PO DAILY 01/23/19 Ondansetron HCl [Zofran 8 mg Tablet] 8 mg PO Q8HP PRN 01/23/19 Paroxetine HCl [Paxil] 40 mg PO QHS 01/23/19 Prochlorperazine Maleate [Compazine 10 mg Tablet] 10 mg PO Q6HP PRN 01/23/19 Quetiapine Fumarate [Seroquel 100 mg Tablet] 100 mg PO BID@0600,1400 01/23/19 Denosumab [Prolia 60 mg/ml Syr 1 ml] 60 mg INJ ASDIR PRN 03/11/19 Dronabinol [Marinol 2.5 mg Capsule] 2.5 mg PO BID 03/11/19 Hydrocodone Bit/Acetaminophen [Hydrocodon-Acetaminophen 5-325] 1 each PO Q6HP PRN 03/11/19 Lorazepam [Ativan 1 mg Tablet] 1 mg PO BIDP PRN MDD 3 mg 03/11/19 Quetiapine Fumarate [Seroquel 100 mg Tablet] 200 mg PO QHS 03/11/19 Trazodone HCl [Desyrel 50 mg Tablet] 50 mg PO QHS 03/11/19 History of Present Illness History of Present Illness: RAMÍREZ LPOEZ is a 68 year old female Patient was admitted for the respiratory distressed pneumonia lung abscess with the lung cancers with metastatic disease in the brain Hospital Course Hospital Course: This 68-year-old female presented emergency department with a respiratory distressed with a history of the advanced lung cancer with metastatic disease in the brain's diagnosed with a pneumonia and infections Patient straight with the IV antibiotics but with the advanced disease family and discussed with the oncology and seen by oncology and decided to put the patient on hospice and comfort care and patient is discharged with the comfort care and hospice Physical Exam Vital Signs: Temp Pulse Resp BP Pulse Ox 98.7 F 105 H 32 H 98/53 L 92 03/15/19 03:19 03/15/19 07:52 03/15/19 07:52 03/15/19 03:19 03/15/19 07:52 Intake & Output 03/14/19 03/15/19 03/16/19 06:59 06:59 06:59 Intake Total 2560 1200 Output Total 2 Balance 2558 1200 Weight 54 kg 53.2 kg General appearance: PRESENT: no acute distress Eye exam: PRESENT: PERRLA Mouth exam: PRESENT: neck supple Respiratory exam: PRESENT: decreased breath sounds Cardiovascular exam: PRESENT: +S1, +S2 Neurological exam: PRESENT: altered Results Laboratory Results: 03/13/19 04:24 03/13/19 04:24 03/11/19 03/11/19 03/11/19 12:26 12:26 12:26 Creatine Kinase 21 L CK-MB (CK-2) 0.31 Troponin I 0.019 NT-Pro-B Natriuret Pep 2550 H Impressions: Chest X-Ray 03/11/19 00:00 IMPRESSION: Cardiomegaly without staci pulmonary edema. Possible right pleural effusion. Cannot exclude airspace disease in the right lower lobe. Qualifiers - * PATIENT BEING DISCHARGED WITH ANY OF THE FOLLOWING DIAGNOSIS: No Acute Heart Failure - Is this a Heart Failure Patient?: No Plan Time Spent: Greater than 30 Minutes - Patient is discharged with the hospice care very extensive discussions with the patient's daughter and the bedside regarding the patient's current conditions and discussed with the oncology with advanced disease patient's life expectancy is less than 6-month and appropriate for the hospice care
[2019-03-15] MEDS: POTASSI CL 20 MEQ/D5-1/2NS 1L 1,000 ML IV PRN (13:26)
[2019-03-15] MEDS: LORAZEPAM INJ 2 MG/1 ML VIAL IV PRN (14:58)
== END 2019-03-15 15:20 | disposition hospice, home (50) | DRG 177 ==
LOC: ER 12:01 → EH 15:25 → 3N 18:50
PROVIDERS: ADMIT Internal Medicine; ATTEND Family Medicine
DX: J85.1 Abscess of lung with pneumonia (principal); J18.9 Pneumonia, unspecified organism; J96.00 Acute respiratory failure, unspecified whether with hypoxia or hypercapnia; C34.11 Malignant neoplasm of upper lobe, right bronchus or lung; C78.7 Secondary malignant neoplasm of liver and intrahepatic bile duct; C79.31 Secondary malignant neoplasm of brain; Z51.5 Encounter for palliative care; D64.9 Anemia, unspecified; Z85.3 Personal history of malignant neoplasm of breast; Z66 Do not resuscitate; F31.9 Bipolar disorder, unspecified; Z87.891 Personal history of nicotine dependence; Z79.899 Other long term (current) drug therapy; Z90.11 Acquired absence of right breast and nipple
CPT/HCPCS: 36415; 71045; 71275; 80053; 82550; 82553; 82803; 83605; 83880; 84484; 85025; 85610; 85730; 86850; 86900; 86901; 87040; 93005; 93010; 94660; 96365; 96367; 99285; A9270-GY; J0696; J1642; J1650; J1956; J2060; J2270; J2405; J2543; J3370; J3480; J7620